=== PATIENT | female | born 1955 | race Caucasian/White ===

== ENCOUNTER 2018-01-18 23:21 | Inpatient (IN) | END 2018-01-25 19:24 | disposition home or self-care (01) | DRG 25 ==

== ENCOUNTER 2018-03-27 13:02 | Emergency (ER) | END 2018-03-27 16:10 | disposition home or self-care (01) ==

== ENCOUNTER 2019-01-23 14:26 | Inpatient (IN) | payer OTHER ==
[~2019-01-23] VITALS: Ht 154.9 cm; Wt 73.7 kg
[~2019-01-23 14:26] MED LIST: CIPR500T4 PO; GLIM2TAB PO; HYDR-4011 PO; LEVE250T66 PO; METF-849 PO; METR500T PO; TRAM50TA2 PO
[2019-01-23] MEDS ORDERED: morphine 4 MG/ML VIAL IV STA (14:39)
[2019-01-23] MEDS ORDERED: SOD CHLORIDE 0.9% 1,000 ML IV STA (14:39)
[2019-01-23] MEDS ORDERED: ONDANSETRON 4 MG INJ IV STA (14:39)
[2019-01-23] MEDS ORDERED: ATOR20TA38 PO (16:26)
[2019-01-23] MEDS ORDERED: AMLO5TAB4 PO (16:26)
[2019-01-23] MEDS ORDERED: DEXA4TAB PO (16:26)
[2019-01-23] MEDS ORDERED: LEVE750T8 PO (16:27)
[2019-01-23] MEDS ORDERED: METF850T13 PO (16:27)
[2019-01-23] MEDS ORDERED: PANT40TA4 PO (16:28)
[2019-01-23] MEDS ORDERED: TRAM50TA PO (16:28)
[2019-01-23] MEDS ORDERED: DOCU-230 PO (16:29)
[2019-01-23] MEDS ORDERED: ONDANSETRON 4 MG INJ IV PRN (17:30)
[2019-01-23] MEDS ORDERED: ACETAMINOPHEN 325 MG TAB PO PRN (17:30)
--- NOTE | 2019-01-23 17:52 | HP ---
Date/Time of Note Date/Time of Note DATE: 01/23/19 TIME: 17:46 Assessment/Plan VTE Prophylaxis Pharmacological prophylaxis: NA/contraindicated Pharm contraindication: other Lines/Catheters IV Catheter Type (from Nrsg): Saline Lock Assessment/Plan Hospital Course 1. Abdominal pain Differential is secondary to constipation versus gastritis versus cystitis Follow-up on KUB and UA No indication for antibiotics at this as there is no evidence of sepsis PPI IV Enema as needed Patient unable to take oral medications at this time 2. Terminal stage IV brain cancer Inpatient hospice consult Of note patient was recently placed on home hospice 3 days ago, that agency does not have privileges for inpatient hospice 3. History of diabetes No indication for insulin due to hospice status Prophylaxis: Not indicated Result Diagram: 01/23/19 1501 01/23/19 1501 Results 24hrs Laboratory Tests Test 01/23/19 15:01 White Blood Count 3.6 #L Red Blood Count 4.68 Hemoglobin 13.8 # Hematocrit 40.0 Mean Corpuscular Volume 85.5 Mean Corpuscular Hemoglobin 29.5 Mean Corpuscular Hemoglobin Concent 34.5 Red Cell Distribution Width 14.0 Platelet Count 163 # Mean Platelet Volume 9.8 Immature Granulocytes % 0.300 Neutrophils % Segmented Neutrophils % (Manual) 69 Band Neutrophils % (Manual) 21 H Lymphocytes % Lymphocytes % (Manual) 6 L Monocytes % Monocytes % (Manual) 4 Eosinophils % Basophils % Nucleated Red Blood Cells % 0.0 Immature Granulocytes # 0.010 Neutrophils # Neutrophils # (Manual) 2.5 Band Neutrophils # 0.7 H Lymphocytes (Manual) 0.2 L Lymphocytes # Monocytes # Monocytes # (Manual) 0.1 L Eosinophils # Basophils # Nucleated Red Blood Cells # Platelet Estimate NORMAL Giant Platelets 2 H Sodium Level 135 Potassium Level 4.0 Chloride Level 102 Carbon Dioxide Level 23 Anion Gap 10 Blood Urea Nitrogen 26 H Creatinine 0.31 L Est Glomerular Filtrat Rate mL/min > 60 Glucose Level 354 H Calcium Level 8.3 L Total Bilirubin 1.1 Direct Bilirubin 0.00 Indirect Bilirubin 1.1 Aspartate Amino Transf (AST/SGOT) 11 L Alanine Aminotransferase (ALT/SGPT) 24 Alkaline Phosphatase 74 Troponin I < 0.012 Total Protein 5.4 L Albumin 2.8 L Globulin 2.60 Albumin/Globulin Ratio 1.07 Lipase 43 HPI/ROS Admit Date/Time Admit Date/Time January 23, 2019 Hx of Present Illness Patient is a 63-year-old female with a history of brain cancer status post surgical resection x2, dyslipidemia, hypertension. Patient is nonverbal and nonambulatory at baseline and was recently placed on home hospice 3 days ago. P lyn was brought in by family due to abdominal pain that began 4 days ago. Exact description of pain is unclear as patient only responds with yes and no, patient has not had a bowel movement for several days now and does have a decreased appetite. Patient has no reported history of gastritis and no history of malignancy within the abdomen. History is obtained from patient's family who is bedside. In the ER there is no evidence of sepsis and chest x-ray shows no significant findings. ROS Subjective hx not possible: pt non-verbal PMH/Family/Social Past Medical History As per HPI Medications Current Medications Ondansetron HCl (Zofran Inj) 4 mg BRIDGE ORDER PRN IV NAUSEA/VOMITING; Start 01/23/19 at 17:30; Stop 01/24/19 at 17:29 Acetaminophen (Tylenol Tab) 650 mg ER BRIDGE PRN PO .MILD PAIN 1-3 OR TEMP; Start 01/23/19 at 17:30; Stop 01/24/19 at 17:29 Uncoded Allergies: SEIZURE MEDS (Allergy, Unknown, 01/23/19) CAN'T REMEMBER THE NAME Past Surgical History History of hysterectomy and oophorectomy Family History Significant Family History: cancer, other Social History Alcohol Use: none Smoking Status: Never smoker Drug Use: none Exam/Review of Systems Vital Signs Vitals Vital Signs Date Temp Pulse Resp B/P (MAP) Pulse Ox O2 O2 Flow FiO2 Time Delivery Rate 01/23/19 95 16 143/98 96 Room Air 16:30 (113) 01/23/19 98.1 16:03 01/23/19 4.0 15:00 Exam Constitutional: non-verbal Respiratory: clear to auscultation Cardiovascular: regular rate and rhythm Gastrointestinal: soft, non-tender; No distended Musculoskeletal: nl extremities to inspection ELIZABETH GOODWIN Jan 23, 2019 17:52
[2019-01-23] MEDS ORDERED: NACL 0.9% 3 ML SYG IV SCH (18:00)
[2019-01-23] MEDS ORDERED: PIPER-TAZO 3.375 GM IV (PMX) 100 ML IVPB ONE (18:30)
--- NOTE | 2019-01-23 18:37 | ERD ---
ER Documentation Chief Complaint Chief Complaint aloc x 3 to 4 days. hx of brain ca. pt is on hospice HPI Patient is a 63-year-old female with stage IV brain cancer and seizures who presents with abdominal pain. Please note the history and physical exam is limited as the patient is nonverbal because of her brain cancer. The patient was brought in by ambulance. She is pointing to her epigastric and chest area per the family. She has had pain off and on since Tuesday. She is on home hospice for the past week. The family had the nurse from the hospice come out who thought it might be gastritis and try to pain medicine which made a little bit better but the pain has gotten worse. ROS All systems reviewed and are negative except as per history of present illness. Medications Home Meds Reported Medications Docusate Sodium* (Stool Softener*) 100 Mg Capsule, 100 MG PO DAILY, CAP 01/23/19 Tramadol Hcl* (Ultram*) 50 Mg Tablet, 50 MG PO Q6H PRN for PAIN, TAB 01/23/19 Pantoprazole* (Pantoprazole*) 40 Mg Tablet.dr, 40 MG PO AC BREAKFAST, TAB 01/23/19 Metformin Hcl* (Metformin Hcl*) 850 Mg Tablet, 850 MG PO WITH BREAKFAST DINNE, #60 TAB 01/23/19 Levetiracetam* (Levetiracetam*) 750 Mg Tablet, 750 MG PO BID, TAB 01/23/19 Dexamethasone* (Dexamethasone*) 4 Mg Tablet, 4 MG PO BID, TAB 01/23/19 Atorvastatin Calcium* (Atorvastatin Calcium*) 20 Mg Tablet, 20 MG PO QHS, #30 TAB 01/23/19 Amlodipine Besylate* (Norvasc*) 5 Mg Tablet, 5 MG PO DAILY, TAB 01/23/19 Discontinued Reported Medications Metformin* (Glucophage*) 500 Mg Tab, 500 MG PO BID WITH MEALS, #90 TAB 03/27/18 Hydrocodone/Acetaminophen ([place] 5-325 Tablet) 1 Each Tablet, 1 EACH PO DAILY PRN for SEVERE PAIN LEVEL 7-10, TAB 03/27/18 Glimepiride* (Glimepiride*) 2 Mg Tablet, 2 MG PO WITH BREAKFAST, TAB 03/27/18 Levetiracetam* (Keppra*) 250 Mg Tab, 250 MG PO BID, TAB 03/27/18 Discontinued Scripts Tramadol HCl (Tramadol HCl) 50 Mg Tablet, 50 MG PO Q6 PRN for PAIN, #10 TAB Prov:FLORENTIN SANTANA MD 03/27/18 Metronidazole* (Flagyl*) 500 Mg Tablet, 500 MG PO TID for 10 Days, TAB Prov:FLORENTIN SANTANA MD 03/27/18 Ciprofloxacin Hcl* (Ciprofloxacin Hcl*) 500 Mg Tablet, 500 MG PO BID for 10 Days, TAB Prov:FLORENTIN SANTANA MD 03/27/18 Allergies Allergies: Uncoded Allergies: SEIZURE MEDS (Allergy, Unknown, 01/23/19) CAN'T REMEMBER THE NAME PMhx/Soc History of Surgery: Yes (appendectomy, hysterectomy, brain tumor removed 2 months ago) Anesthesia Reaction: No Hx Neurological Disorder: No Hx Respiratory Disorders: No Hx Cardiac Disorders: No Hx Psychiatric Problems: No Hx Miscellaneous Medical Probl: Yes (brain cancer) Hx Alcohol Use: No Hx Substance Use: No Hx Tobacco Use: No Smoking Status: Never smoker FmHx Family History: diabetes Physical Exam Vitals Vital Signs Date Temp Pulse Resp B/P (MAP) Pulse Ox O2 O2 Flow FiO2 Time Delivery Rate 01/23/19 95 16 143/98 96 Room Air 16:30 (113) 01/23/19 98.1 98 20 138/97 98 16:03 (111) 01/23/19 105 18 144/98 96 Nasal 4.0 15:00 (113) Cannula Physical Exam Const: Moderate distress secondary to pain Head: Atraumatic Eyes: Normal Conjunctiva ENT: Normal External Ears, Nose and Mouth. Neck: Full range of motion. No meningismus. Resp: Clear to auscultation bilaterally Cardio: Regular rate and rhythm, no murmurs Abd: Diffuse tenderness to palpation without rebound or guarding Skin: No petechiae or rashes Back: No midline or flank tenderness Ext: No cyanosis, or edema Neur: Awake but nonverbal at baseline Result Diagram: 01/23/19 1501 01/23/19 1501 Results 24 hrs Laboratory Tests Test 01/23/19 15:01 White Blood Count 3.6 10^3/ul Red Blood Count 4.68 10^6/ul Hemoglobin 13.8 g/dl Hematocrit 40.0 % Mean Corpuscular Volume 85.5 fl Mean Corpuscular Hemoglobin 29.5 pg Mean Corpuscular Hemoglobin Concent 34.5 g/dl Red Cell Distribution Width 14.0 % Platelet Count 163 10^3/UL Mean Platelet Volume 9.8 fl Immature Granulocytes % 0.300 % Neutrophils % % Segmented Neutrophils % (Manual) 69 % Band Neutrophils % (Manual) 21 % Lymphocytes % % Lymphocytes % (Manual) 6 % Monocytes % % Monocytes % (Manual) 4 % Eosinophils % % Basophils % % Nucleated Red Blood Cells % 0.0 /100WBC Immature Granulocytes # 0.010 10^3/ul Neutrophils # 10^3/ul Neutrophils # (Manual) 2.5 10^3/ul Band Neutrophils # 0.7 10^3/ul Lymphocytes (Manual) 0.2 10^3/ul Lymphocytes # 10^3/ul Monocytes # 10^3/ul Monocytes # (Manual) 0.1 10^3/ul Eosinophils # 10^3/ul Basophils # 10^3/ul Nucleated Red Blood Cells # 10^3/ul Platelet Estimate NORMAL Giant Platelets 2 % Sodium Level 135 mmol/L Potassium Level 4.0 mmol/L Chloride Level 102 mmol/L Carbon Dioxide Level 23 mmol/L Anion Gap 10 Blood Urea Nitrogen 26 mg/dl Creatinine 0.31 mg/dl Est Glomerular Filtrat Rate mL/min > 60 mL/min Glucose Level 354 mg/dl Calcium Level 8.3 mg/dl Total Bilirubin 1.1 mg/dl Direct Bilirubin 0.00 mg/dl Indirect Bilirubin 1.1 mg/dl Aspartate Amino Transf (AST/SGOT) 11 IU/L Alanine Aminotransferase (ALT/SGPT) 24 IU/L Alkaline Phosphatase 74 IU/L Troponin I < 0.012 ng/ml Total Protein 5.4 g/dl Albumin 2.8 g/dl Globulin 2.60 g/dl Albumin/Globulin Ratio 1.07 Lipase 43 U/L Current Medications Medications Dose Sig/Millie Start Time Status Last (Trade) Ordered Route PRN Stop Time Admin Dose Reason Admin Sodium 1,000 ml @ Q1H STAT 01/23/19 DC 01/23/19 Chloride 1,000 mls/hr IV 14:39 15:12 01/23/19 15:38 Morphine 4 mg ONCE STAT 01/23/19 DC 01/23/19 Sulfate IV 14:39 15:12 (morphine) 01/23/19 14:40 Ondansetron 4 mg ONCE STAT 01/23/19 DC 01/23/19 HCl (Zofran IV 14:39 15:12 Inj) 01/23/19 14:40 Ondansetron 4 mg BRIDGE ORDER 01/23/19 HCl (Zofran PRN IV 17:30 Inj) NAUSEA/VOMITI 01/24/19 17:29 NG 650 mg ER BRIDGE 01/23/19 Acetaminophen PRN PO 17:30 (Tylenol .MILD PAIN 01/24/19 17:29 Tab) 1-3 OR TEMP IV Flush 3 ml PER 01/23/19 (NS 3 ml) PROTOCOL IV 18:00 Morphine 2 mg Q4H PRN 01/23/19 Sulfate IV .SEVERE 18:00 (morphine) PAIN 7-10 40 mg DAILY@06 01/24/19 UNV Pantoprazole IV 06:00 (Protonix Iv) 100 ml @ Q12 IVPB 01/23/19 UNV Levetiracetam 400 mls/hr 21:00 Piperacillin 100 ml @ ONCE ONCE 01/23/19 Sod/ 200 mls/hr IVPB 18:30 Tazobactam 01/23/19 18:59 Sod Procedures/MDM CT abdomen pelvis shows perforated diverticulitis per radiology. Patient is a 63-year-old female who presents with acute abdominal pain. The patient was found to have acute perforated diverticulitis. At this point I doubt sepsis. The patient had blood cultures drawn and was given Zosyn emp irically. I had a long discussion with the family regarding goals of care. They would like to continue with inpatient hospice. We discussed surgery and we do not feel the patient is a good candidate for surgery at this time given her stage IV brain cancer. The patient will be admitted to the care of Dr. Hernandez to inpatient hospice. Critical Care: Time: 35 minutes excluding all billable procedures. Treatments/Evaluations: Close monitoring and treatment of unstable vital signs, cardiorespiratory, and neurologic status, while maintaining tight balance of fluid, respiratory, and cardiac interventions. Departure Diagnosis: Primary Impression: Hospice care Additional Impressions: Perforation of cecum due to diverticulitis Abdominal pain Abdominal location: generalized Qualified Codes: R10.84 - Generalized abdominal pain Condition: Serious SHAWN TELLO MD Jan 23, 2019 18:37
[2019-01-23] MEDS: LEVETIRACETAM 500 MG (PMX) 100 ML IVPB SCH (22:56)
[2019-01-24 00:01] VITALS: BP 163/92; PULSE 92; RESP 18
[2019-01-24 00:26] VITALS: Ht 154.9 cm; Wt 73.7 kg
[2019-01-24] MEDS: PIPER-TAZO 3.375 GM IV (PMX) 100 ML IVPB SCH ×5 (00:33→23:28)
[2019-01-24 04:58] VITALS: BP 150/87; PULSE 88; RESP 16
[2019-01-24] MEDS: PANTOPRAZOLE 40 MG INJ IV SCH (05:26)
[2019-01-24] MEDS ORDERED: hydrALAzine 20 MG INJ IV ONE (07:00)
[2019-01-24] MEDS: morphine 2 MG INJ IV PRN ×2 (07:11→21:44)
[2019-01-24 08:11] VITALS: BP 168/87; PULSE 84; RESP 18
[2019-01-24] MEDS: LEVETIRACETAM 500 MG (PMX) 100 ML IVPB SCH ×2 (09:31→21:12)
[2019-01-24] MEDS: DEXAMETHASONE 4 MG TAB PO SCH ×2 (13:22→21:12)
[2019-01-24 14:51] VITALS: BP 139/81; PULSE 92; RESP 18
--- NOTE | 2019-01-24 15:52 | PN ---
Date/Time of Note Date/Time of Note DATE: 01/24/19 TIME: 15:44 Assessment/Plan VTE Prophylaxis Risk score (from [facility] [place])>0 risk: 11 SCD applied (from [facility] [place]): Yes Pharmacological prophylaxis: NA/contraindicated Pharm contraindication: surgical contra Lines/Catheters IV [facility] Saline Lock Urinary Cath still in place: No Assessment/Plan Hospital Course 1. Abdominal pain secondary to diverticulitis with perforation CT abdomen does demonstrate diverticulitis with perforation, no evidence of free air on KUB Surgical consultation with Dr. Fuentes obtained, not clear if patient is a surgical candidate considering comorbidites Zosyn IV PPI IV Enema as needed Patient unable to take oral medications at this time 2. Stage IV brain cancer Family reports that patient receives care at [facility] and has been told that there is no clear evidence of further brain mass Patient is status post 2 surgical resections as well as chemotherapy and radiation, patient last received chemotherapy several weeks ago and began to become somnolent 3. Encephalopathy likely secondary to history of surgical resection as well as radiation therapy to the brain Patient became more somnolent several weeks ago and is currently nonverbal and nonambulatory, etiology is likely secondary to previous surgeries and radiation, previous brain imaging showed some enhancement in the brain but no evidence of malignancy Continue home Decadron which appears to have been given for enhancement noted on brain imaging but not for a clear brain mass 4. History of diabetes Lantus and sliding scale Prophylaxis: SCDs Result Diagram: 01/23/19 1501 01/23/19 1501 Results 24hrs Laboratory Tests Test 01/23/19 19:48 01/23/19 22:54 Lactic Acid Level 1.0 0.9 Subjective 24 Hr Interval Summary Subjective hx not possible: pt non-verbal Exam/Review of Systems Exam Vitals Vital Signs Date Temp Pulse Resp B/P (MAP) Pulse Ox O2 O2 Flow FiO2 Time Delivery Rate 01/24/19 97.8 92 18 139/81 95 Nasal 14:51 (100) Cannula 01/24/19 3.0 08:35 Intake and Output 01/23/19 01/23/19 01/24/19 1515:00 23:00 07:00 IntakeIntake Total 200 ml BalanceBalance 200 ml Constitutional: non-verbal Respiratory: clear to auscultation Cardiovascular: regular rate and rhythm Gastrointestinal: soft; No distended Musculoskeletal: nl extremities to inspection Results Results 24hrs Laboratory Tests Test 01/23/19 19:48 01/23/19 22:54 Lactic Acid Level 1.0 0.9 Medications Medication Current Medications IV Flush (NS 3 ml) 3 ml PER PROTOCOL IV ; Start 01/23/19 at 18:00 Morphine Sulfate (morphine) 2 mg Q4H PRN IV .SEVERE PAIN 7-10 Last administered on 01/24/19 07:11; Admin Dose 2 MG; Start 01/23/19 at 18:00 Pantoprazole (Protonix Iv) 40 mg DAILY@06 IV Last administered on 01/24/19 05:26; Admin Dose 40 MG; Start 01/24/19 at 06:00 Levetiracetam 100 ml @ 400 mls/hr Q12 IVPB Last administered on 01/24/19 09:31; Admin Dose 400 MLS/HR; Start 01/23/19 at 23:00 Piperacillin Sod/ Tazobactam Sod 100 ml @ 200 mls/hr Q6 IVPB Last administered on 01/24/19 13:21; Admin Dose 200 MLS/HR; Start 01/24/19 at 00:00 Dexamethasone (Decadron) 4 mg BID PO Last administered on 01/24/19 13:22; Admin Dose 4 MG; Start 01/24/19 at 12:30 ELIZABETH GOODWIN Jan 24, 2019 15:51
[2019-01-24] MEDS ORDERED: GLUCOSE GEL 15 GRAM TUBE BUCCAL PRN (16:30)
[2019-01-24] MEDS ORDERED: DEXTROSE 50% 50 ML SYRINGE IV PRN ×2 (16:30)
[2019-01-24] MEDS ORDERED: GLUCOSE GEL 15 GRAM TUBE PO PRN ×2 (16:30)
[2019-01-24] MEDS ORDERED: GLUCAGON 1 MG INJ IM PRN (16:30)
[2019-01-24] MEDS: INSULIN ASPART [NOVOLOG] 3 ML PEN SC SCH ×2 (18:21→21:11)
[2019-01-24 19:30] VITALS: BP 135/67; PULSE 79; RESP 18
[2019-01-24] MEDS ORDERED: INSULIN GLARGINE [LANTus] (100 UNITS/ML) SYG SC SCH (20:00)
[2019-01-24] MEDS: NS + KCL 20 MEQ 1,000 ML IV SCH (21:12)
[2019-01-25 00:10] VITALS: BP 153/81; PULSE 71; RESP 18
[2019-01-25] MEDS: ACCU-CHEK XX SCH (01:21)
[2019-01-25] MEDS: INSULIN ASPART [NOVOLOG] 3 ML PEN SC SCH ×6 (01:21→20:42)
[2019-01-25] MEDS: PIPER-TAZO 3.375 GM IV (PMX) 100 ML IVPB SCH ×3 (05:23→17:45)
[2019-01-25] MEDS: PANTOPRAZOLE 40 MG INJ IV SCH (05:24)
[2019-01-25 08:15] VITALS: BP 153/80; PULSE 58
[2019-01-25] MEDS: LEVETIRACETAM 500 MG (PMX) 100 ML IVPB SCH ×2 (09:05→20:39)
[2019-01-25] MEDS: DEXAMETHASONE 4 MG TAB PO SCH ×2 (09:06→21:00)
[2019-01-25] MEDS: NS + KCL 20 MEQ 1,000 ML IV SCH (13:27)
--- NOTE | 2019-01-25 15:41 | CONS ---
Assessment/Plan Assessment/Plan Hospital Course (Demo Recall) 1. perforated diverticulitis w small pneumoperitoneum: family would like to pursue conservative management -npo -ivf -abx -careful monitoring -repeat imaging in a few days 2. stage 4 cancer, sp tumor resection and radiation -Oncology/neuro follow-up -Supportive 3.Leukopenia: -Monitor 4. Normocytic normochromic anemia: -Monitor and transfuse as needed 5. Thrombocytopenia: -Monitor; consider changing antibiotics if persistent 6. Obesity BMI: 31 -diet and exercise optimization -encourage weight loss 7. Dyslipidemia, hypertension history -Highly encouraged weight loss -Medical management 8. Hyperglycemia with glucosuria: Currently on steroids -Glucose management Thank you. Patient seen and examined in collaboration with Dr. Abimael Fuentes. Consultation Date/Type/Reason Admit Date/Time January 23, 2019 Date of Consultation: Jan 24, 2019 Type of Consult Surgical Reason for Consultation Abdominal pain, pneumoperitoneum Requesting Provider: ELIZABETH GOODWIN Date/Time of Note DATE: 01/24/19 TIME: 18:43 Hx of Present Illness Josette Hong is a 63-year-old woman with past medical history of brain cancer status post surgical resection x2, recent radiation therapy, dyslipidemia, hypertension and obesity, who presented to the ED with reports of abdominal pain that began approximately 4 days prior to ED visit. Notably, patient was placed on hospice service at home, however patient family has now reverted DNR status. No reports of fevers, labored breathing, congested cough, vomiting, diarrhea, seizure, rashes skin changes. Family does report that patient has not had a bowel movement for several days but is passing gas. CT of the abdomen shows diverticulosis with stranding of mesenteric fat through the right lateral abdomen with small volume pneumoperitoneum compatible with perforated diverticulitis. Laboratory findings show leukopenia with WBC of 3.6 as well as thrombocytopenia of 128. General surgery was asked to evaluate. 12 point review of systems was reviewed and is negative except as stated in HPI Past Medical History As above Home Meds Reported Medications Docusate Sodium* (Stool Softener*) 100 Mg Capsule, 100 MG PO DAILY, CAP 01/23/19 Tramadol Hcl* (Ultram*) 50 Mg Tablet, 50 MG PO Q6H PRN for PAIN, TAB 01/23/19 Pantoprazole* (Pantoprazole*) 40 Mg Tablet., 40 MG PO AC BREAKFAST, TAB 01/23/19 Metformin Hcl* (Metformin Hcl*) 850 Mg Tablet, 850 MG PO WITH BREAKFAST DINNE, #60 TAB 01/23/19 Levetiracetam* (Levetiracetam*) 750 Mg Tablet, 750 MG PO BID, TAB 01/23/19 Dexamethasone* (Dexamethasone*) 4 Mg Tablet, 4 MG PO BID, TAB 01/23/19 Atorvastatin Calcium* (Atorvastatin Calcium*) 20 Mg Tablet, 20 MG PO QHS, #30 TAB 01/23/19 Amlodipine Besylate* (Norvasc*) 5 Mg Tablet, 5 MG PO DAILY, TAB 01/23/19 Discontinued Reported Medications Metformin* (Glucophage*) 500 Mg Tab, 500 MG PO BID WITH MEALS, #90 TAB 03/27/18 Hydrocodone/Acetaminophen ([place] 5-325 Tablet) 1 Each Tablet, 1 EACH PO DAILY PRN for SEVERE PAIN LEVEL 7-10, TAB 03/27/18 Glimepiride* (Glimepiride*) 2 Mg Tablet, 2 MG PO WITH BREAKFAST, TAB 03/27/18 Levetiracetam* (Keppra*) 250 Mg Tab, 250 MG PO BID, TAB 03/27/18 Discontinued Scripts Tramadol HCl (Tramadol HCl) 50 Mg Tablet, 50 MG PO Q6 PRN for PAIN, #10 TAB Prov:FLORENTIN SANTANA MD 03/27/18 Metronidazole* (Flagyl*) 500 Mg Tablet, 500 MG PO TID for 10 Days, TAB Prov:FLORENTIN SANTANA MD 03/27/18 Ciprofloxacin Hcl* (Ciprofloxacin Hcl*) 500 Mg Tablet, 500 MG PO BID for 10 Days, TAB Prov:FLORENTIN SANTANA MD 03/27/18 Medications Current Medications IV Flush (NS 3 ml) 3 ml PER PROTOCOL IV ; Start 01/23/19 at 18:00 Morphine Sulfate (morphine) 2 mg Q4H PRN IV .SEVERE PAIN 7-10 Last administered on 01/24/19at 07:11; Admin Dose 2 MG; Start 01/23/19 at 18:00 Pantoprazole (Protonix Iv) 40 mg DAILY@06 IV Last administered on 01/24/19at 05:26; Admin Dose 40 MG; Start 01/24/19 at 06:00 Levetiracetam 100 ml @ 400 mls/hr Q12 IVPB Last administered on 01/24/19at 09:31; Admin Dose 400 MLS/HR; Start 01/23/19 at 23:00 Piperacillin Sod/ Tazobactam Sod 100 ml @ 200 mls/hr Q6 IVPB Last administered on 01/24/19at 13:21; Admin Dose 200 MLS/HR; Start 01/24/19 at 00:00 Dexamethasone (Decadron) 4 mg BID PO Last administered on 01/24/19at 13:22; Admin Dose 4 MG; Start 01/24/19 at 12:30 Diagnostic Test (Pha) (Accu-Chek) 1 ea 02 XX ; Start 01/25/19 at 02:00 Insulin Glargine (Lantus) 10 units DAILY@2000 SC ; Start 01/24/19 at 20:00 Insulin Aspart (Novolog Insulin Pen) NOVOLOG *MILD* ALGORI... Q4 SC Last administered on 01/24/19at 18:21; Admin Dose 4 UNIT; Start 01/24/19 at 17:00 Miscellaneous Information 1 ea NOTE XX ; Start 01/24/19 at 16:30 Glucose (Glutose) 15 gm Q15M PRN PO DECREASED GLUCOSE; Start 01/24/19 at 16:30 Glucose (Glutose) 22.5 gm Q15M PRN PO DECREASED GLUCOSE; Start 01/24/19 at 1 6:30 Dextrose (D50w Syringe) 25 ml Q15M PRN IV DECREASED GLUCOSE; Start 01/24/19 at 16:30 Dextrose (D50w Syringe) 50 ml Q15M PRN IV DECREASED GLUCOSE; Start 01/24/19 at 16:30 Glucagon (Glucagen) 1 mg Q15M PRN IM DECREASED GLUCOSE; Start 01/24/19 at 16:30 Glucose (Glutose) 15 gm Q15M PRN BUCCAL DECREASED GLUCOSE; Start 01/24/19 at 16:30 Allergies: Uncoded Allergies: SEIZURE MEDS (Allergy, Unknown, 01/23/19) CAN'T REMEMBER THE NAME Past Surgical History As above Social History Alcohol Use: none Smoking Status: Never smoker Drug Use: none Exam/Review of Systems Exam Vitals Vital Signs Date Temp Pulse Resp B/P (MAP) Pulse Ox O2 O2 Flow FiO2 Time Delivery Rate 01/24/19 97.8 92 18 139/81 95 Nasal 14:51 (100) Cannula 01/24/19 3.0 08:35 Intake and Output 01/23/19 01/23/19 01/24/19 1515:00 23:00 07:00 IntakeIntake Total 200 ml BalanceBalance 200 ml Constitutional: alert, well developed; No distress Psych: nl mood/affect; No anxiety Head: normocephalic, atraumatic, other (Left scalp incision sites healed) Eyes: nl conjunctiva, nl lids ENMT: nl external ears & nose, nl lips & teeth, nl nasal mucosa & septum Neck: supple, non-tender Respiratory: normal air movement; No congested cough Cardiovascular: regular rate and rhythm, nl pulses; No edema Gastrointestinal: soft, distended (Minimal); No tender Genitourinary - Female: nl external genitalia Musculoskeletal: nl extremities to inspection Extremities: normal pulses; No edema Neurological: No nl speech (Repetitive words), No nl strength Skin: No rash or lesions Results Result Diagram: 01/23/19 1501 01/23/19 1501 Results 24hrs Laboratory Tests Test 01/23/19 19:48 01/23/19 22:54 01/24/19 18:15 Lactic Acid Level 1.0 0.9 Bedside Glucose 288 H Medications Medication Current Medications IV Flush (NS 3 ml) 3 ml PER PROTOCOL IV ; Start 01/23/19 at 18:00 Morphine Sulfate (morphine) 2 mg Q4H PRN IV .SEVERE PAIN 7-10 Last administered on 01/24/19at 07:11; Admin Dose 2 MG; Start 01/23/19 at 18:00 Pantoprazole (Protonix Iv) 40 mg DAILY@06 IV Last administered on 01/24/19at 05:26; Admin Dose 40 MG; Start 01/24/19 at 06:00 Levetiracetam 100 ml @ 400 mls/hr Q12 IVPB Last administered on 01/24/19at 09:31; Admin Dose 400 MLS/HR; Start 01/23/19 at 23:00 Piperacillin Sod/ Tazobactam Sod 100 ml @ 200 mls/hr Q6 IVPB Last administered on 01/24/19at 13:21; Admin Dose 200 MLS/HR; Start 01/24/19 at 00:00 Dexamethasone (Decadron) 4 mg BID PO Last administered on 01/24/19at 13:22; Admin Dose 4 MG; Start 01/24/19 at 12:30 Diagnostic Test (Pha) (Accu-Chek) 1 ea 02 XX ; Start 01/25/19 at 02:00 Insulin Glargine (Lantus) 10 units DAILY@2000 SC ; Start 01/24/19 at 20:00 Insulin Aspart (Novolog Insulin Pen) NOVOLOG *MILD* ALGORI... Q4 SC Last admini stered on 01/24/19at 18:21; Admin Dose 4 UNIT; Start 01/24/19 at 17:00 Miscellaneous Information 1 ea NOTE XX ; Start 01/24/19 at 16:30 Glucose (Glutose) 15 gm Q15M PRN PO DECREASED GLUCOSE; Start 01/24/19 at 16:30 Glucose (Glutose) 22.5 gm Q15M PRN PO DECREASED GLUCOSE; Start 01/24/19 at 16:30 Dextrose (D50w Syringe) 25 ml Q15M PRN IV DECREASED GLUCOSE; Start 01/24/19 at 16:30 Dextrose (D50w Syringe) 50 ml Q15M PRN IV DECREASED GLUCOSE; Start 01/24/19 at 16:30 Glucagon (Glucagen) 1 mg Q15M PRN IM DECREASED GLUCOSE; Start 01/24/19 at 16:30 Glucose (Glutose) 15 gm Q15M PRN BUCCAL DECREASED GLUCOSE; Start 01/24/19 at 16:30 MARY JANE DALY NP Jan 24, 2019 18:55
--- NOTE | 2019-01-25 15:45 | PN ---
Date/Time of Note Date/Time of Note DATE: 01/25/19 TIME: 15:44 Assessment/Plan Lines/Catheters IV Catheter Type (from [facility]): Peripheral IV Figueroa in Place (from [facility]): No Assessment/Plan Chief Complaint/Hosp Course 1. perforated diverticulitis w small pneumoperitoneum: family would like to pursue conservative management -npo -ivf -abx -Continue careful monitoring -repeat imaging in a few days 2. stage 4 cancer, sp tumor resection and radiation -Oncology/neuro follow-up -Supportive 3.Leukopenia: -Monitor 4. Normocytic normochromic anemia: -Monitor and transfuse as needed 5. Thrombocytopenia: -Monitor; consider changing antibiotics if persistent 6. Obesity BMI: 31 -diet and exercise optimization -encourage weight loss 7. Dyslipidemia, hypertension history -Highly encouraged weight loss -Medical management 8. Hyperglycemia with glucosuria: Currently on steroids -Glucose management Thank you. Patient seen and examined in collaboration with Dr. Abimael Fuentes. Subjective 24 Hr Interval Summary No acute abdominal pain. No fevers, chills, sob, congested cough, cp, palpitations, chavarria, dizziness, nausea, vomiting, diarrhea, dysuria. No abdominal distention Exam/Review of Systems Vital Signs Vitals Vital Signs Date Temp Pulse Resp B/P (MAP) Pulse Ox O2 O2 Flow FiO2 Time Delivery Rate 01/25/19 97.7 58 153/80 98 Nasal 08:15 (104) Cannula 01/25/19 18 00:10 01/24/19 3.0 20:00 Intake and Output 01/24/19 01/24/19 01/25/19 1515:00 23:00 07:00 IntakeIntake Total 300 ml 300 ml 840 ml BalanceBalance 300 ml 300 ml 840 ml Exam Free Text/Dictation Constitutional: alert, well developed; No distress Psych: nl mood/affect; No anxiety Head: normocephalic, atraumatic, other (Left scalp incision sites healed) Eyes: nl conjunctiva, nl lids ENMT: nl external ears & nose, nl lips & teeth, nl nasal mucosa & septum Neck: supple, non-tender Respiratory: normal air movement; No congested cough Cardiovascular: regular rate and rhythm, nl pulses; No edema Gastrointestinal: soft, distended (Minimal); nonrigid No tender Genitourinary - Female: nl external genitalia Musculoskeletal: nl extremities to inspection Extremities: normal pulses; No edema Neurological: No nl speech (Repetitive words), No nl strength Skin: No rash or lesions Results Result Diagram: 01/25/19 0458 01/25/19 0458 MARY JANE DALY NP Jan 25, 2019 15:45
--- NOTE | 2019-01-25 15:49 | PN ---
Date/Time of Note Date/Time of Note DATE: 01/25/19 TIME: 15:47 Assessment/Plan VTE Prophylaxis Risk score (from [facility] [place])>0 risk: 7 SCD applied (from [facility] [place]): Yes Pharmacological prophylaxis: NA/contraindicated Pharm contraindication: surgical contra Lines/Catheters IV C[facility]ter Type (from [facility]): Peripheral IV Urinary Cath still in place: No Assessment/Plan Hospital Course 1. Abdominal pain secondary to diverticulitis with perforation CT abdomen does demonstrate diverticulitis with perforation, no evidence of free air on KUB Surgical consultation with Dr. Fuentes appreciated, plan for now is to continue IV antibiotics n.p.o. status and repeat CT abdomen in several days Zosyn IV PPI IV Enema as needed 2. Stage IV brain cancer Family reports that patient receives care at [place] and has been told that there is no clear evidence of further brain mass Patient is status post 2 surgical resections as well as chemotherapy and radiation, patient last received chemotherapy several weeks ago and began to become somnolent 3. Encephalopathy likely secondary to history of surgical resection as well as radiation therapy to the brain Patient became more somnolent several weeks ago and is currently nonverbal and nonambulatory, etiology is likely secondary to previous surgeries and radiation, previous brain imaging showed some enhancement in the brain but no evidence of malignancy Continue home Decadron which appears to have been given for enhancement noted on brain imaging but not for a clear brain mass 4. History of diabetes Lantus and sliding scale Prophylaxis: SCDs DC planning: Continue IV antibiotics and follow-up with repeat imaging in the next several days Result Diagram: 01/25/19 0458 01/25/19 0458 Results 24hrs Laboratory Tests Test 01/24/19 18:15 01/24/19 21:06 01/25/19 01:18 01/25/19 04:58 Bedside Glucose 288 H 290 H 304 H White Blood Count 3.7 L Red Blood Count 3.73 #L Hemoglobin 10.8 #L Hematocrit 33.0 L Mean Corpuscular 88.5 Volume Mean Corpuscular 29.0 Hemoglobin Mean Corpuscular 32.7 Hemoglobin Concen t Red Cell 14.1 Distribution Width Platelet Count 128 #L Mean Platelet 10.8 H Volume Immature 0.800 H Granulocytes % Neutrophils % Segmented 74 Neutrophils % (Manual) Band Neutrophils 14 H % (Manual) Lymphocytes % Lymphocytes % 8 L (Manual) Monocytes % Monocytes % 4 (Manual) Eosinophils % Basophils % Nucleated Red 0.0 Blood Cells % Immature 0.030 Granulocytes # Neutrophils # Neutrophils # 2.8 (Manual) Band Neutrophils 0.5 # Lymphocytes 0.2 L (Manual) Lymphocytes # Monocytes # Monocytes # 0.1 L (Manual) Eosinophils # Basophils # Nucleated Red Blood Cells # Platelet Estimate DECREASED Giant Platelets 1 H Polychromasia 3+ Anisocytosis 1+ Microcytosis 1+ Sodium Level 139 Potassium Level 4.3 Chloride Level 104 Carbon Dioxide 29 Level Anion Gap 6 Blood Urea 24 H Nitrogen Creatinine 0.32 L Est Glomerular > 60 Filtrat Rate mL/min Glucose Level 271 H Calcium Level 8.3 L Phosphorus Level 3.3 Magnesium Level 2.6 H Test 01/25/19 05:26 01/25/19 09:00 01/25/19 12:53 01/25/19 13:10 Bedside Glucose 265 H 248 H 213 Urine Color YELLOW Urine Clarity SLIGHTLY CLOUDY A Urine pH 5.0 Urine Specific 1.038 H [place] Urine Ketones 1+ H Urine Nitrite NEGATIVE Urine Bilirubin NEGATIVE Urine NEGATIVE Urobilinogen Urine Leukocyte NEGATIVE Esterase Urine Microscopic 0 RBC Urine Microscopic 3 WBC Urine Hemoglobin NEGATIVE Urine Glucose 3+ H Urine Total 2+ H Protein Subjective 24 Hr Interval Summary Subjective hx not possible: pt non-verbal Exam/Review of Systems Exam Vitals Vital Signs Date Temp Pulse Resp B/P (MAP) Pulse Ox O2 O2 Flow FiO2 Time Delivery Rate 01/25/19 97.7 58 153/80 98 Nasal 08:15 (104) Cannula 01/25/19 18 00:10 01/24/19 3.0 20:00 Intake and Output 01/24/19 01/24/19 01/25/19 1515:00 23:00 07:00 IntakeIntake Total 300 ml 300 ml 840 ml BalanceBalance 300 ml 300 ml 840 ml Constitutional: non-verbal Respiratory: clear to auscultation Cardiovascular: regular rate and rhythm Gastrointestinal: soft; No distended Musculoskeletal: nl extremities to inspection Results Results 24hrs Laboratory Tests Test 01/24/19 18:15 01/24/19 21:06 01/25/19 01:18 01/25/19 04:58 Bedside Glucose 288 H 290 H 304 H White Blood Count 3.7 L Red Blood Count 3.73 #L Hemoglobin 10.8 #L Hematocrit 33.0 L Mean Corpuscular 88.5 Volume Mean Corpuscular 29.0 Hemoglobin Mean Corpuscular 32.7 Hemoglobin Concen t Red Cell 14.1 Distribution Width Platelet Count 128 #L Mean Platelet 10.8 H Volume Immature 0.800 H Granulocytes % Neutrophils % Segmented 74 Neutrophils % (Manual) Band Neutrophils 14 H % (Manual) Lymphocytes % Lymphocytes % 8 L (Manual) Monocytes % Monocytes % 4 (Manual) Eosinophils % Basophils % Nucleated Red 0.0 Blood Cells % Immature 0.030 Granulocytes # Neutrophils # Neutrophils # 2.8 (Manual) Band Neutrophils 0.5 # Lymphocytes 0.2 L (Manual) Lymphocytes # Monocytes # Monocytes # 0.1 L (Manual) Eosinophils # Basophils # Nucleated Red Blood Cells # Platelet Estimate DECREASED Giant Platelets 1 H Polychromasia 3+ Anisocytosis 1+ Microcytosis 1+ Sodium Level 139 Potassium Level 4.3 Chloride Level 104 Carbon Dioxide 29 Level Anion Gap 6 Blood Urea 24 H Nitrogen Creatinine 0.32 L Est Glomerular > 60 Filtrat Rate mL/min Glucose Level 271 H Calcium Level 8.3 L Phosphorus Level 3.3 Magnesium Level 2.6 H Test 01/25/19 05:26 01/25/19 09:00 01/25/19 12:53 01/25/19 13:10 Bedside Glucose 265 H 248 H 213 Urine Color YELLOW Urine Clarity SLIGHTLY CLOUDY A Urine pH 5.0 Urine Specific 1.038 H [place] Urine Ketones 1+ H Urine Nitrite NEGATIVE Urine Bilirubin NEGATIVE Urine NEGATIVE Urobilinogen Urine Leukocyte NEGATIVE Esterase Urine Microscopic 0 RBC Urine Microscopic 3 WBC Urine Hemoglobin NEGATIVE Urine Glucose 3+ H Urine Total 2+ H Protein Medications Medication Current Medications IV Flush (NS 3 ml) 3 ml PER PROTOCOL IV ; Start 01/23/19 at 18:00 Morphine Sulfate (morphine) 2 mg Q4H PRN IV .SEVERE PAIN 7-10 Last administered on 01/24/19at 21:44; Admin Dose 2 MG; Start 01/23/19 at 18:00 Pantoprazole (Protonix Iv) 40 mg DAILY@06 IV Last administered on 01/25/19at 05:24; Admin Dose 40 MG; Start 01/24/19 at 06:00 Levetiracetam 100 ml @ 400 mls/hr Q12 IVPB Last administered on 01/25/19at 09:05; Admin Dose 400 MLS/HR; Start 01/23/19 at 23:00 Piperacillin Sod/ Tazobactam Sod 100 ml @ 200 mls/hr Q6 IVPB Last administered on 01/25/19at 11:20; Admin Dose 200 MLS/HR; Start 01/24/19 at 00:00 Dexamethasone (Decadron) 4 mg BID PO Last administered on 01/25/19at 09:06; Admin Dose 4 MG; Start 01/24/19 at 12:30 Diagnostic Test (Pha) (Accu-Chek) 1 ea 02 XX ; Start 01/25/19 at 02:00 Insulin Glargine (Lantus) 10 units DAILY@2000 SC Last administered on 01/24/19at 21:10; Admin Dose 10 UNITS; Start 01/24/19 at 20:00 Insulin Aspart (Novolog Insulin Pen) NOVOLOG *MILD* ALGORI... Q4 SC Last administered on 01/25/19at 12:58; Admin Dose 2 UNIT; Start 01/24/19 at 17:00 Miscellaneous Information 1 ea NOTE XX ; Start 01/24/19 at 16:30 Glucose (Glutose) 15 gm Q15M PRN PO DECREASED GLUCOSE; Start 01/24/19 at 16:30 Glucose (Glutose) 22.5 gm Q15M PRN PO DECREASED GLUCOSE; Start 01/24/19 at 16:30 Dextrose (D50w Syringe) 25 ml Q15M PRN IV DECREASED GLUCOSE; Start 01/24/19 at 16:30 Dextrose (D50w Syringe) 50 ml Q15M PRN IV DECREASED GLUCOSE; Start 01/24/19 at 16:30 Glucagon (Glucagen) 1 mg Q15M PRN IM DECREASED GLUCOSE; Start 01/24/19 at 16:30 Glucose (Glutose) 15 gm Q15M PRN BUCCAL DECREASED GLUCOSE; Start 01/24/19 at 16:30 Potassium Chloride/Sodium Chloride 1,000 ml @ 80 mls/hr [id number] IV Last administered on 01/25/19at 13:27; Admin Dose 80 MLS/HR; Start 01/24/19 at 20:30 ELIZABETH GOODWIN Jan 25, 2019 15:49
[2019-01-25 15:50] VITALS: BP 140/71; PULSE 59; RESP 18
[2019-01-25 19:45] VITALS: BP 172/92; PULSE 61; RESP 18
[2019-01-25] MEDS ORDERED: DEXAMETHASONE 4 MG/ML 1 ML INJ IV ONE (21:45)
[2019-01-25] MEDS ORDERED: hydrALAzine 20 MG INJ IV ONE (21:45)
[2019-01-25 22:15] VITALS: BP 171/81; PULSE 70
[2019-01-25] MEDS: INSULIN GLARGINE [LANTus] (100 UNITS/ML) SYG SC SCH (22:33)
[2019-01-26] MEDS: PIPER-TAZO 3.375 GM IV (PMX) 100 ML IVPB SCH ×4 (00:27→17:48)
[2019-01-26] MEDS: NS + KCL 20 MEQ 1,000 ML IV SCH ×3 (01:23→15:27)
[2019-01-26] MEDS: INSULIN ASPART [NOVOLOG] 3 ML PEN SC SCH ×6 (01:28→20:55)
[2019-01-26] MEDS: ACCU-CHEK XX SCH (02:00)
[2019-01-26 02:30] VITALS: BP 140/74; PULSE 62; RESP 18
[2019-01-26] MEDS: PANTOPRAZOLE 40 MG INJ IV SCH (05:50)
[2019-01-26 07:32] VITALS: BP 135/72; PULSE 58; RESP 18
[2019-01-26] MEDS: LEVETIRACETAM 500 MG (PMX) 100 ML IVPB SCH ×2 (08:42→21:22)
[2019-01-26] MEDS: DEXAMETHASONE 4 MG TAB PO SCH (09:00)
[2019-01-26] MEDS: DEXAMETHASONE 4 MG/ML 1 ML INJ IV SCH ×3 (11:12→21:22)
--- NOTE | 2019-01-26 14:02 | PN ---
Date/Time of Note Date/Time of Note DATE: 01/26/19 TIME: 13:59 Assessment/Plan Lines/Catheters IV Catheter Type (from [facility]): Peripheral IV Figueroa in Place (from [facility]): No Assessment/Plan Chief Complaint/Hosp Course 1. Perforated diverticulitis w small pneumoperitoneum: family would like to pursue conservative management -Continue npo -Continue Ivf -abx -Continue careful monitoring -repeat imaging in a few days 2. stage 4 cancer, sp tumor resection and radiation -Oncology/neuro follow-up -Supportive 3.Leukopenia: -Monitor 4. Normocytic normochromic anemia: -Monitor and transfuse as needed 5. Thrombocytopenia: -Monitor; consider changing antibiotics if persistent 6. Obesity BMI: 31 -diet and exercise optimization -encourage weight loss 7. Dyslipidemia, hypertension history -Highly encouraged weight loss -Medical management 8. Hyperglycemia with glucosuria: Currently on steroids -Glucose management Thank you. Patient seen and examined in collaboration with Dr. Abimael Fuentes. Subjective 24 Hr Interval Summary No reports of abdominal pain or discomfort. No fevers, chills, sob, congested cough, cp, palpitations, chavarria, dizziness, nausea, vomiting, diarrhea, dysuria. Exam/Review of Systems Vital Signs Vitals Vital Signs Date Temp Pulse Resp B/P (MAP) Pulse Ox O2 O2 Flow FiO2 Time Delivery Rate 01/26/19 98.0 58 18 135/72 97 Room Air 07:32 (93) 01/24/19 3.0 20:00 Intake and Output 01/25/19 01/25/19 01/26/19 1515:00 23:00 07:00 IntakeIntake Total 1000 ml 1300 ml 1080 ml BalanceBalance 1000 ml 1300 ml 1080 ml Exam Free Text/Dictation Constitutional: alert, well developed; No distress Psych: nl mood/affect; No anxiety Head: normocephalic, atraumatic, other (Left scalp incision sites healed) Eyes: nl conjunctiva, nl lids ENMT: nl external ears & nose, nl lips & teeth, nl nasal mucosa & septum Neck: supple, non-tender Respiratory: normal air movement; No congested cough Cardiovascular: regular rate and rhythm, nl pulses; No edema Gastrointestinal: soft, distended (Minimal); nonrigid No tender Genitourinary - Female: nl external genitalia Musculoskeletal: nl extremities to inspection Extremities: normal pulses; No edema Neurological: No nl speech (Repetitive words), No nl strength Skin: No rash or lesions Results Result Diagram: 01/26/19 0445 01/26/19 0445 MARY JANE DALY NP Jan 26, 2019 14:02
--- NOTE | 2019-01-26 16:00 | PN ---
Date/Time of Note Date/Time of Note DATE: 01/26/19 TIME: 15:58 Assessment/Plan VTE Prophylaxis [place] [facility] [place]: 7 SCD applied [place] [facility] [place] Yes Pharmacological prophylaxis: NA/contraindicated Pharm contraindication: surgical contra Lines/Catheters IV Catheter Type (from [facility]): Peripheral IV Urinary Cath still in place: No Assessment/Plan Hospital Course 1. Abdominal pain secondary to diverticulitis with perforation CT abdomen does demonstrate diverticulitis with perforation, no evidence of free air on KUB Surgical consultation with Dr. Fuentes appreciated, plan for now is to continue IV antibiotics n.p.o. status and repeat CT abdomen in several days Zosyn IV PPI IV Enema as needed 2. Stage IV brain cancer Family reports that patient receives care at [facility] and has been told that there is no clear evidence of further brain mass Patient is status post 2 surgical resections as well as chemotherapy and radiation, patient last received chemotherapy several weeks ago and began to become somnolent 3. Encephalopathy likely secondary to history of surgical resection as well as radiation therapy to the brain Patient became more somnolent several weeks ago and is currently nonverbal and nonambulatory, etiology is likely secondary to previous surgeries and radiation, previous brain imaging showed some enhancement in the brain but no evidence of malignancy Continue steroids which appear to have been given for enhancement noted on brain imaging but not for a clear brain mass 4. History of diabetes Lantus and sliding scale Prophylaxis: SCDs DC planning: Continue IV antibiotics and follow-up with repeat imaging in the next several days Result Diagram: 01/26/19 0445 01/26/19 0445 Results 24hrs Laboratory Tests Test 01/25/19 17:41 01/25/19 20:40 01/25/19 22:17 01/26/19 01:23 Bedside Glucose 236 H 230 H 198 227 H Test 01/26/19 04:45 01/26/19 05:51 01/26/19 08:49 01/26/19 12:49 White Blood Count 4.0 L Red Blood Count 3.74 L Hemoglobin 10.9 L Hematocrit 32.6 L Mean Corpuscular 87.2 Volume Mean Corpuscular 29.1 Hemoglobin Mean Corpuscular 33.4 Hemoglobin Concent Red Cell 14.0 Distribution Width Platelet Count 139 L Mean Platelet Volume 11.2 H Immature 0.800 H Granulocytes % Neutrophils % Segmented 66 Neutrophils % (Manual) Band Neutrophils % 20 H (Manual) Lymphocytes % Lymphocytes % 8 L (Manual) Reactive Lymphocytes 1 H % (Manual) Monocytes % Monocytes % (Manual) 5 Eosinophils % Basophils % Nucleated Red Blood 1 H Cells % Immature 0.030 Granulocytes # Neutrophils # Neutrophils # 2.7 (Manual) Band Neutrophils # 0.8 H Lymphocytes (Manual) 0.3 L Lymphocytes # Reactive Lymphocytes 0.0 # Monocytes # Monocytes # (Manual) 0.2 L Eosinophils # Basophils # Nucleated Red Blood Cells # Toxic Granulation 1+ Platelet Estimate NORMAL Giant Platelets 1 H Polychromasia 1+ Sodium Level 138 Potassium Level 4.2 Chloride Level 106 Carbon Dioxide Level 27 Anion Gap 5 Blood Urea Nitrogen 24 H Creatinine 0.32 L Est Glomerular > 60 Filtrat Rate mL/min Glucose Level 211 Calcium Level 8.1 L Bedside Glucose 190 177 152 Subjective 24 Hr Interval Summary Subjective hx not possible: pt non-verbal Exam/Review of Systems Exam Vitals Vital Signs Date Temp Pulse Resp B/P (MAP) Pulse Ox O2 O2 Flow FiO2 Time Delivery Rate 01/26/19 98.0 58 18 135/72 97 Room Air 07:32 (93) 01/24/19 3.0 20:00 Intake and Output 01/25/19 01/25/19 01/26/19 1515:00 23:00 07:00 IntakeIntake Total 1000 ml 1300 ml 1080 ml BalanceBalance 1000 ml 1300 ml 1080 ml Constitutional: non-verbal Respiratory: clear to auscultation Cardiovascular: regular rate and rhythm Gastrointestinal: soft; No distended Musculoskeletal: nl extremities to inspection Results Results 24hrs Laboratory Tests Test 01/25/19 17:41 01/25/19 20:40 01/25/19 22:17 01/26/19 01:23 Bedside Glucose 236 H 230 H 198 227 H Test 01/26/19 04:45 01/26/19 05:51 01/26/19 08:49 01/26/19 12:49 White Blood Count 4.0 L Red Blood Count 3.74 L Hemoglobin 10.9 L Hematocrit 32.6 L Mean Corpuscular 87.2 Volume Mean Corpuscular 29.1 Hemoglobin Mean Corpuscular 33.4 Hemoglobin Concent Red Cell 14.0 Distribution Width Platelet Count 139 L Mean Platelet Volume 11.2 H Immature 0.800 H Granulocytes % Neutrophils % Segmented 66 Neutrophils % (Manual) Band Neutrophils % 20 H (Manual) Lymphocytes % Lymphocytes % 8 L (Manual) Reactive Lymphocytes 1 H % (Manual) Monocytes % Monocytes % (Manual) 5 Eosinophils % Basophils % Nucleated Red Blood 1 H Cells % Immature 0.030 Granulocytes # Neutrophils # Neutrophils # 2.7 (Manual) Band Neutrophils # 0.8 H Lymphocytes (Manual) 0.3 L Lymphocytes # Reactive Lymphocytes 0.0 # Monocytes # Monocytes # (Manual) 0.2 L Eosinophils # Basophils # Nucleated Red Blood Cells # Toxic Granulation 1+ Platelet Estimate NORMAL Giant Platelets 1 H Polychromasia 1+ Sodium Level 138 Potassium Level 4.2 Chloride Level 106 Carbon Dioxide Level 27 Anion Gap 5 Blood Urea Nitrogen 24 H Creatinine 0.32 L Est Glomerular > 60 Filtrat Rate mL/min Glucose Level 211 Calcium Level 8.1 L Bedside Glucose 190 177 152 Medications Medication Current Medications IV Flush (NS 3 ml) 3 ml PER PROTOCOL IV ; Start 01/23/19 at 18:00 Morphine Sulfate (morphine) 2 mg Q4H PRN IV .SEVERE PAIN 7-10 Last administered on 01/24/19 21:44; Admin Dose 2 MG; Start 01/23/19 at 18:00 Pantoprazole (Protonix Iv) 40 mg DAILY@06 IV Last administered on 01/26/19 0 5:50; Admin Dose 40 MG; Start 01/24/19 at 06:00 Levetiracetam 100 ml @ 400 mls/hr Q12 IVPB Last administered on 01/26/19 08:42; Admin Dose 400 MLS/HR; Start 01/23/19 at 23:00 Piperacillin Sod/ Tazobactam Sod 100 ml @ 200 mls/hr Q6 IVPB Last administered on 01/26/19 12:21; Admin Dose 200 MLS/HR; Start 01/24/19 at 00:00 Dexamethasone (Decadron) 4 mg BID PO Last administered on 01/25/19 09:06; Admin Dose 4 MG; Start 01/24/19 at 12:30; Status Hold Diagnostic Test (Pha) (Accu-Chek) 02 XX ; Start 01/25/19 at 02:00 Insulin Aspart (Novolog Insulin Pen) NOVOLOG *MILD* ALGORI... Q4 SC Last administered on 4/26/19at 12:57; Admin Dose 1 UNIT; Start 01/24/19 at 17:00 Miscellaneous Information 1 ea NOTE XX ; Start 01/24/19 at 16:30 Glucose (Glutose) 15 gm Q15M PRN PO DECREASED GLUCOSE; Start 01/24/19 at 16:30 Glucose (Glutose) 22.5 gm Q15M PRN PO DECREASED GLUCOSE; Start 01/24/19 at 1 6:30 Dextrose (D50w Syringe) 25 ml Q15M PRN IV DECREASED GLUCOSE; Start 01/24/19 at 16:30 Dextrose (D50w Syringe) 50 ml Q15M PRN IV DECREASED GLUCOSE; Start 01/24/19 at 16:30 Glucagon (Glucagen) 1 mg Q15M PRN IM DECREASED GLUCOSE; Start 01/24/19 at 16:30 Glucose (Glutose) 15 gm Q15M PRN BUCCAL DECREASED GLUCOSE; Start 01/24/19 at 16:30 Potassium Chloride/Sodium Chloride 1,000 ml @ 80 mls/hr [id number] IV Last administered on 01/26/19at 15:27; Admin Dose 80 MLS/HR; Start 01/24/19 at 20:30 Insulin Glargine (Lantus) 14 units DAILY@2000 SC Last administered on 01/25/19at 22:33; Admin Dose 14 UNITS; Start 01/25/19 at 20:00 Dexamethasone (Decadron) 2 mg Q12 IV Last administered on 01/26/19at 11:12; Admin Dose 2 MG; Start 01/26/19 at 10:30 ELIZABETH GOODWIN Jan 26, 2019 16:00
[2019-01-26 17:19] VITALS: BP 157/81; PULSE 57; RESP 18
[2019-01-26 19:15] VITALS: BP 144/65; PULSE 59; RESP 18
[2019-01-26 20:00] VITALS: BP 133/59; PULSE 61
[2019-01-26] MEDS: INSULIN GLARGINE [LANTus] (100 UNITS/ML) SYG SC SCH (20:54)
[2019-01-27] VITALS (9 sets, daily range): BP systolic 132–170; BP diastolic 55–88; PULSE 56–61; RESP 18
[2019-01-27] MEDS: PIPER-TAZO 3.375 GM IV (PMX) 100 ML IVPB SCH ×4 (00:37→18:03)
[2019-01-27] MEDS: INSULIN ASPART [NOVOLOG] 3 ML PEN SC SCH ×6 (00:41→21:00)
[2019-01-27] MEDS: ACCU-CHEK XX SCH (02:00)
[2019-01-27] MEDS: NS + KCL 20 MEQ 1,000 ML IV SCH ×2 (05:41→21:48)
[2019-01-27] MEDS: PANTOPRAZOLE 40 MG INJ IV SCH (05:41)
[2019-01-27] MEDS: DEXAMETHASONE 4 MG/ML 1 ML INJ IV SCH ×2 (08:46→21:05)
[2019-01-27] MEDS: LEVETIRACETAM 500 MG (PMX) 100 ML IVPB SCH ×2 (08:47→21:05)
--- NOTE | 2019-01-27 12:20 | PN ---
Date/Time of Note Date/Time of Note DATE: 01/27/19 TIME: 12:19 Assessment/Plan VTE Prophylaxis Risk score (from [facility]0 risk: 7 SCD applied (from [facility]): Yes Pharmacological prophylaxis: NA/contraindicated Pharm contraindication: surgical contra Lines/Catheters IV Catheter Type (from [facility]): Peripheral IV Urinary Cath still in place: No Assessment/Plan Hospital Course 1. Abdominal pain secondary to diverticulitis with perforation CT abdomen does demonstrate diverticulitis with perforation, no evidence of free air on KUB Surgical consultation with Dr. Fuentes appreciated, plan for now is to continue IV antibiotics n.p.o. status and repeat CT abdomen in several days Zosyn IV PPI IV Enema as needed 2. Stage IV brain cancer Family reports that patient receives care at [facility] and has been told that there is no clear evidence of further brain mass Patient is status post 2 surgical resections as well as chemotherapy and radiation, patient last received chemotherapy several weeks ago and began to become somnolent 3. Encephalopathy likely secondary to history of surgical resection as well as radiation therapy to the brain Patient became more somnolent several weeks ago and is currently nonverbal and nonambulatory, etiology is likely secondary to previous surgeries and radiation, previous brain imaging showed some enhancement in the brain but no evidence of malignancy Continue steroids which appear to have been given for enhancement noted on brain imaging but not for a clear brain mass 4. History of diabetes Lantus and sliding scale Prophylaxis: SCDs DC planning: Continue IV antibiotics and follow-up with repeat imaging in the next several days Result Diagram: 01/26/19 0445 01/26/19 0445 Results 24hrs Laboratory Tests Test 01/26/19 12:49 01/26/19 17:46 01/26/19 20:53 01/27/19 00:36 Bedside Glucose 152 164 168 141 Test 01/27/19 05:42 01/27/19 08:44 Bedside Glucose 124 101 Subjective 24 Hr Interval Summary Subjective hx not possible: pt non-verbal Exam/Review of Systems Exam Vitals Vital Signs Date Temp Pulse Resp B/P (MAP) Pulse Ox O2 O2 Flow FiO2 Time Delivery Rate 01/27/19 59 18 169/81 10:45 (110) 01/27/19 Nasal 2.0 08:52 Cannula 01/27/19 97.6 96 08:39 Intake and Output 01/26/19 01/26/19 01/27/19 1515:00 23:00 07:00 IntakeIntake Total 200 ml 1400 ml 1000 ml BalanceBalance 200 ml 1400 ml 1000 ml Constitutional: non-verbal Respiratory: clear to auscultation Cardiovascular: regular rate and rhythm Gastrointestinal: soft; No distended Musculoskeletal: nl extremities to inspection Results Results 24hrs Laboratory Tests Test 01/26/19 12:49 01/26/19 17:46 01/26/19 20:53 01/27/19 00:36 Bedside Glucose 152 164 168 141 Test 01/27/19 05:42 01/27/19 08:44 Bedside Glucose 124 101 Medications Medication Current Medications IV Flush (NS 3 ml) 3 ml PER PROTOCOL IV ; Start 01/23/19 at 18:00 Morphine Sulfate (morphine) 2 mg Q4H PRN IV .SEVERE PAIN 7-10 Last administered on 01/24/19at 21:44; Admin Dose 2 MG; Start 01/23/19 at 18:00 Pantoprazole (Protonix Iv) 40 mg DAILY@06 IV Last administered on 01/27/19at 05:41; Admin Dose 40 MG; Start 01/24/19 at 06:00 Levetiracetam 100 ml @ 400 mls/hr Q12 IVPB Last administered on 01/27/19at 08:47; Admin Dose 400 MLS/HR; Start 01/23/19 at 23:00 Piperacillin Sod/ Tazobactam Sod 100 ml @ 200 mls/hr Q6 IVPB Last administered on 01/27/19at 05:41; Admin Dose 200 MLS/HR; Start 01/24/19 at 00:00 Dexamethasone (Decadron) 4 mg BID PO Last administered on 01/25/19at 09:06; Admin Dose 4 MG; Start 01/24/19 at 12:30; Status Hold Diagnostic Test (Pha) (Accu-Chek) 1 ea 02 XX ; Start 01/25/19 at 02:00 Insulin Aspart (Novolog Insulin Pen) NOVOLOG *MILD* ALGORI... Q4 SC Last administered on 01/27/19at 00:41; Admin Dose 1 UNIT; Start 01/24/19 at 17:00 Miscellaneous Information 1 ea NOTE XX ; Start 01/24/19 at 16:30 Glucose (Glutose) 15 gm Q15M PRN PO DECREASED GLUCOSE; Start 01/24/19 at 16:30 Glucose (Glutose) 22.5 gm Q15M PRN PO DECREASED GLUCOSE; Start 01/24/19 at 16:30 Dextrose (D50w Syringe) 25 ml Q15M PRN IV DECREASED GLUCOSE; Start 01/24/19 at 16:30 Dextrose (D50w Syringe) 50 ml Q15M PRN IV DECREASED GLUCOSE; Start 01/24/19 at 16:30 Glucagon (Glucagen) 1 mg Q15M PRN IM DECREASED GLUCOSE; Start 01/24/19 at 16:30 Glucose (Glutose) 15 gm Q15M PRN BUCCAL DECREASED GLUCOSE; Start 01/24/19 at 16 :30 Potassium Chloride/Sodium Chloride 1,000 ml @ 80 mls/hr [id number] IV Last administered on 01/27/19at 05:41; Admin Dose 80 MLS/HR; Start 01/24/19 at 20:30 Insulin Glargine (Lantus) 14 units DAILY@2000 SC Last administered on 01/26/19at 20:54; Admin Dose 14 UNITS; Start 01/25/19 at 20:00 Dexamethasone (Decadron) 2 mg Q12 IV Last administered on 01/27/19at 08:46; Admin Dose 2 MG; Start 01/26/19 at 10:30 ELIZABETH GOODWIN Jan 27, 2019 12:20
[2019-01-27] MEDS: morphine 2 MG INJ IV PRN (12:27)
[2019-01-27] MEDS ORDERED: SOD CHLORIDE 0.9% 100 ML ONE (14:55)
[2019-01-27] MEDS ORDERED: IOHEXOL 300MG/ML 150 ML BTL ONE (14:55)
[2019-01-27] MEDS: INSULIN GLARGINE [LANTus] (100 UNITS/ML) SYG SC SCH (21:08)
[2019-01-28] MEDS: PIPER-TAZO 3.375 GM IV (PMX) 100 ML IVPB SCH ×4 (00:37→18:14)
[2019-01-28] MEDS: INSULIN ASPART [NOVOLOG] 3 ML PEN SC SCH ×6 (01:00→20:41)
--- NOTE | 2019-01-28 01:30 | PN ---
Date/Time of Note Date/Time of Note DATE: 01/27/19 TIME: 23:26 Assessment/Plan Lines/Catheters IV Catheter Type (from [facility]): Peripheral IV Figueroa in Place (from [facility]): No Assessment/Plan Chief Complaint/Hosp Course 1. Perforated diverticulitis w small pneumoperitoneum: family would like to pursue conservative management. Bowel function. -Nutrition -abx -repeat imaging pending 2. Stage 4 cancer, sp tumor resection and radiation -Oncology/neuro follow-up -Supportive 3. Leukopenia: -Monitor 4. Normocytic normochromic anemia: -Monitor and transfuse as needed 5. Thrombocytopenia: -Monitor; consider changing antibiotics if persistent 6. Obesity BMI: 31 -diet and exercise optimization -encourage weight loss 7. Dyslipidemia, hypertension history -Highly encouraged weight loss -Medical management 8. Hyperglycemia with glucosuria: Currently on steroids -Glucose management Thank you, Late entry 01/27 Subjective 24 Hr Interval Summary Bowel function. No reports of abdominal pain or discomfort. No fevers, chills, sob, congested cough, cp, palpitations, chavarria, dizziness, nausea, vomiting, diarrhea, dysuria. Exam/Review of Systems Vital Signs Vitals Vital Signs Date Temp Pulse Resp B/P (MAP) Pulse Ox O2 O2 Flow FiO2 Time Delivery Rate 01/27/19 98.9 56 18 141/76 95 20:33 (97) 01/27/19 Nasal 15:09 Cannula 01/27/19 2.0 12:34 Intake and Output 01/27/19 01/27/19 01/28/19 1515:00 23:00 07:00 IntakeIntake Total 200 ml 1200 ml BalanceBalance 200 ml 1200 ml Exam Free Text/Dictation Constitutional: NAD, BMI 31 Psych: nl mood/affect; No anxiety Head: normocephalic, atraumatic, other (Left scalp incision sites healed) Eyes: nl conjunctiva, nl lids ENMT: nl external ears & nose, nl lips & teeth, nl nasal mucosa & septum Neck: supple, non-tender Respiratory: normal air movement; No congested cough Cardiovascular: regular rate and rhythm, nl pulses; No edema Gastrointestinal: soft, distended (Minimal); nonrigid No tender Genitourinary - Female: nl external genitalia Musculoskeletal: nl extremities to inspection Extremities: normal pulses; No edema Neurological: No nl speech (Repetitive words), No nl strength Skin: No rash or lesions Results Result Diagram: 01/26/19 0445 01/26/19 0445 LOUIS PERDOMO MD Jan 28, 2019 01:29
[2019-01-28 01:58] VITALS: BP 165/80; PULSE 57; RESP 18
[2019-01-28] MEDS: ACCU-CHEK XX SCH (02:00)
[2019-01-28] MEDS: PANTOPRAZOLE 40 MG INJ IV SCH (05:28)
[2019-01-28 06:23] VITALS: BP 133/68; PULSE 61
[2019-01-28 08:10] VITALS: BP 169/83; PULSE 62; RESP 15
[2019-01-28] MEDS: DEXAMETHASONE 4 MG/ML 1 ML INJ IV SCH (09:30)
[2019-01-28] MEDS: LEVETIRACETAM 500 MG (PMX) 100 ML IVPB SCH ×2 (09:31→20:35)
[2019-01-28] MEDS: NS + KCL 20 MEQ 1,000 ML IV SCH (11:35)
--- NOTE | 2019-01-28 12:58 | PN ---
Date/Time of Note Date/Time of Note DATE: 01/28/19 TIME: 12:55 Assessment/Plan VTE Prophylaxis [place] [facility] [place]: 7 SCD applied [place] [facility] [place] Yes Pharmacological prophylaxis: NA/contraindicated Pharm contraindication: other Lines/Catheters IV Catheter Type (from [facility]): Peripheral IV Urinary Cath still in place: No Assessment/Plan Hospital Course 1. Abdominal pain secondary to diverticulitis with perforation CT abdomen on arrival revealed diverticulitis with perforation, no evidence of free air on KUB Surgical consultation with Dr. Fuentes appreciated, plan has been to continue IV antibiotics and n.p.o. status Patient now with repeat CT abdomen that shows Interval partial resorption of previously noted pneumoperitoneum Have discussed repeat CT with surgery and will start a clear liquid diet Continue Zosyn IV PPI IV 2. Stage IV brain cancer Family reports that patient receives care at [place] and has been told that there is no clear evidence of further brain mass Patient is status post 2 surgical resections as well as chemotherapy and radiation, patient last received chemotherapy several weeks ago and began to become somnolent 3. Encephalopathy likely secondary to history of surgical resection as well as radiation therapy to the brain Patient became more somnolent several weeks ago and is currently nonverbal and nonambulatory, etiology is likely secondary to previous surgeries and radiation, previous brain imaging showed some enhancement in the brain but no evidence of malignancy Continue steroids which appear to have been given for enhancement noted on brain imaging but not for a clear brain mass 4. History of diabetes Lantus and sliding scale Prophylaxis: SCDs DC planning: Start clears today and continue IV antibiotics, anticipate DC to home in the next several days, follow-up with surgery recommendations Result Diagram: 01/26/19 0445 01/26/19 0445 Results 24hrs Laboratory Tests Test 01/27/19 13:38 01/27/19 18:00 01/27/19 21:07 01/28/19 01:36 Bedside Glucose 119 128 96 134 Test 01/28/19 05:29 01/28/19 09:35 Bedside Glucose 110 101 Subjective 24 Hr Interval Summary Subjective hx not possible: pt non-verbal Exam/Review of Systems Exam Vitals Vital Signs Date Temp Pulse Resp B/P (MAP) Pulse Ox O2 O2 Flow FiO2 Time Delivery Rate 01/28/19 98.9 62 15 169/83 93 Room Air 08:10 (111) 01/27/19 2.0 12:34 Intake and Output 01/27/19 01/27/19 01/28/19 1515:00 23:00 07:00 IntakeIntake Total 200 ml 1200 ml 200 ml BalanceBalance 200 ml 1200 ml 200 ml Constitutional: non-verbal Respiratory: clear to auscultation Cardiovascular: regular rate and rhythm Gastrointestinal: soft; No distended Musculoskeletal: nl extremities to inspection Results Results 24hrs Laboratory Tests Test 01/27/19 13:38 01/27/19 18:00 01/27/19 21:07 01/28/19 01:36 Bedside Glucose 119 128 96 134 Test 01/28/19 05:29 01/28/19 09:35 Bedside Glucose 110 101 Medications Medication Current Medications IV Flush (NS 3 ml) 3 ml PER PROTOCOL IV ; Start 01/23/19 at 18:00 Morphine Sulfate (morphine) 2 mg Q4H PRN IV .SEVERE PAIN 7-10 Last administered on 01/27/19at 12:27; Admin Dose 2 MG; Start 01/23/19 at 18:00 Pantoprazole (Protonix Iv) 40 mg DAILY@06 IV Last administered on 01/28/19at 05:28; Admin Dose 40 MG; Start 01/24/19 at 06:00 Levetiracetam 100 ml @ 400 mls/hr Q12 IVPB Last administered on 01/28/19at 09:31; Admin Dose 400 MLS/HR; Start 01/23/19 at 23:00 Piperacillin Sod/ Tazobactam Sod 100 ml @ 200 mls/hr Q6 IVPB Last administered on 01/28/19at 12:07; Admin Dose 200 MLS/HR; Start 01/24/19 at 00:00 Dexamethasone (Decadron) 4 mg BID PO Last administered on 01/25/19 09:06; Admin Dose 4 MG; Start 01/24/19 at 12:30; Status Hold Diagnostic Test (Pha) (Accu-Chek) 1 ea 02 XX ; Start 01/25/19 at 02:00 Insulin Aspart (Novolog Insulin Pen) NOVOLOG *MILD* ALGORI... Q4 SC Last administered on 01/27/19at 00:41; Admin Dose 1 UNIT; Start 01/24/19 at 17:00 Miscellaneous Information 1 ea NOTE XX ; Start 01/24/19 at 16:30 Glucose (Glutose) 15 gm Q15M PRN PO DECREASED GLUCOSE; Start 01/24/19 at 16:30 Glucose (Glutose) 22.5 gm Q15M PRN PO DECREASED GLUCOSE; Start 01/24/19 at 16:30 Dextrose (D50w Syringe) 25 ml Q15M PRN IV DECREASED GLUCOSE; Start 01/24/19 at 16:30 Dextrose (D50w Syringe) 50 ml Q15M PRN IV DECREASED GLUCOSE; Start 01/24/19 at 16:30 Glucagon (Glucagen) 1 mg Q15M PRN IM DECREASED GLUCOSE; Start 01/24/19 at 16:30 Glucose (Glutose) 15 gm Q15M PRN BUCCAL DECREASED GLUCOSE; Start 01/24/19 at 16:30 Potassium Chloride/Sodium Chloride 1,000 ml @ 80 mls/hr [id number] IV Last administered on 01/28/19at 11:35; Admin Dose 80 MLS/HR; Start 01/24/19 at 20:30 Dexamethasone (Decadron) 2 mg Q12 IV Last administered on 01/28/19at 09:30; Admin Dose 2 MG; Start 01/26/19 at 10:30 Insulin Glargine (Lantus) 16 units DAILY@2000 SC Last administered on 01/27/19at 21:08; Admin Dose 16 UNITS; Start 01/27/19 at 20:00 ELIZABETH GOODWIN Jan 28, 2019 12:58
[2019-01-28] MEDS: DEXAMETHASONE 4 MG TAB PO SCH (20:35)
[2019-01-28] MEDS: INSULIN GLARGINE [LANTus] (100 UNITS/ML) SYG SC SCH (20:39)
[2019-01-28 20:49] VITALS: BP 160/88; PULSE 68; RESP 18
[2019-01-29] MEDS: PIPER-TAZO 3.375 GM IV (PMX) 100 ML IVPB SCH ×5 (01:07→23:58)
[2019-01-29] MEDS: NS + KCL 20 MEQ 1,000 ML IV SCH ×3 (01:07→16:22)
[2019-01-29] MEDS: ACCU-CHEK XX SCH (01:17)
[2019-01-29] MEDS: INSULIN ASPART [NOVOLOG] 3 ML PEN SC SCH ×6 (01:17→20:14)
--- NOTE | 2019-01-29 01:19 | PN ---
Date/Time of Note Date/Time of Note DATE: 01/28/19 TIME: 23:17 Assessment/Plan Lines/Catheters IV Catheter Type (from [facility]): Peripheral IV Figueroa in Place (from [facility]): No Assessment/Plan Chief Complaint/Hosp Course 1. Perforated diverticulitis w small pneumoperitoneum: family would like to pursue conservative management. Bowel function. Imaging noted. -Nutrition -abx 2. Stage 4 cancer, sp tumor resection and radiation -Oncology/neuro follow-up -Supportive 3. Leukopenia: -Monitor 4. Normocytic normochromic anemia: -Monitor and transfuse as needed 5. Thrombocytopenia: -Monitor; consider changing antibiotics if persistent 6. Obesity BMI: 31 -diet and exercise optimization -encourage weight loss 7. Dyslipidemia, hypertension history -Highly encouraged weight loss -Medical management 8. Hyperglycemia with glucosuria: Currently on steroids -Glucose management Thank you, Late entry 01/28 Subjective 24 Hr Interval Summary Repeat CT noted, improving. Liquids started. Bowel function. No reports of abdominal pain or discomfort. No fevers, chills, sob, congested cough, cp, palpitations, chavarria, dizziness, nausea, vomiting, diarrhea, dysuria. Exam/Review of Systems Vital Signs Vitals Vital Signs Date Temp Pulse Resp B/P (MAP) Pulse Ox O2 O2 Flow FiO2 Time Delivery Rate 01/28/19 99.1 68 18 160/88 98 Room Air 20:49 (112) 01/27/19 2.0 12:34 Intake and Output 01/28/19 01/28/19 01/29/19 1414:59 22:59 06:59 IntakeIntake Total 1400 ml 1000 ml BalanceBalance 1400 ml 1000 ml Exam Free Text/Dictation Constitutional: NAD, BMI 31 Psych: nl mood/affect; No anxiety Head: normocephalic, atraumatic, other (Left scalp incision sites healed) Eyes: nl conjunctiva, nl lids ENMT: nl external ears & nose, nl lips & teeth, nl nasal mucosa & septum Neck: supple, non-tender Respiratory: normal air movement; No congested cough Cardiovascular: regular rate and rhythm, nl pulses; No edema Gastrointestinal: soft, distended (Minimal); nonrigid No tender Genitourinary - Female: nl external genitalia Musculoskeletal: nl extremities to inspection Extremities: normal pulses; No edema Neurological: No nl speech (Repetitive words), No nl strength Skin: No rash or lesions Results Result Diagram: 01/26/19 0445 01/26/19 0445 LOUIS PERDOMO MD Jan 29, 2019 01:19
[2019-01-29 02:29] VITALS: BP 144/82; PULSE 63; RESP 18
[2019-01-29] MEDS: PANTOPRAZOLE 40 MG INJ IV SCH (05:33)
[2019-01-29 07:56] VITALS: BP 170/81; PULSE 56; RESP 18
[2019-01-29 08:22] VITALS: BP 165/87; PULSE 66; RESP 18
[2019-01-29] MEDS: DEXAMETHASONE 4 MG TAB PO SCH ×2 (09:48→20:14)
[2019-01-29] MEDS: LEVETIRACETAM 500 MG (PMX) 100 ML IVPB SCH ×2 (09:48→20:11)
--- NOTE | 2019-01-29 11:25 | PN ---
Date/Time of Note Date/Time of Note DATE: 01/29/19 TIME: 11:22 Assessment/Plan Lines/Catheters IV Catheter Type (from [email or web address] Peripheral IV Figueroa in Place (from [email or web address] No Assessment/Plan Chief Complaint/Hosp Course 1. Perforated diverticulitis w small pneumoperitoneum: family would like to pursue conservative management. Bowel function. Imaging noted. -Nutrition -abx 2. Stage 4 brain cancer, sp tumor resection and radiation -Oncology/neuro follow-up -Supportive 3. Leukopenia: -Monitor 4. Normocytic normochromic anemia: -Monitor and transfuse as needed 5. Thrombocytopenia: -Monitor; consider changing antibiotics if persistent 6. Obesity BMI: 31 -diet and exercise optimization -encourage weight loss 7. Dyslipidemia, HTN history -Highly encouraged weight loss -Medical management Thank you, Subjective 24 Hr Interval Summary Tolerating liquid diet. Bowel function. No abdominal pain. No fevers, chills, sob, congested cough, cp, palpitations, chavarria, dizziness, nausea, vomiting, dysuria. Labs noted. Exam/Review of Systems Vital Signs Vitals Vital Signs Date Temp Pulse Resp B/P (MAP) Pulse Ox O2 O2 Flow FiO2 Time Delivery Rate 01/29/19 98.5 66 18 165/87 97 08:22 (113) 01/29/19 Room Air 02:29 01/27/19 2.0 12:34 Intake and Output 01/28/19 01/28/19 01/29/19 1515:00 23:00 07:00 IntakeIntake Total 1400 ml 1100 ml 1600 ml BalanceBalance 1400 ml 1100 ml 1600 ml Exam Free Text/Dictation Constitutional: NAD, BMI 31 Psych: nl mood/affect; No anxiety Head: normocephalic, atraumatic, other (Left scalp incision sites healed) Eyes: nl conjunctiva, nl lids ENMT: nl external ears & nose, nl lips & teeth, nl nasal mucosa & septum Neck: supple, non-tender Respiratory: normal air movement; No congested cough Cardiovascular: regular rate and rhythm, nl pulses; No edema Gastrointestinal: soft, distended (Minimal); nonrigid, NT Genitourinary - Female: nl external genitalia Musculoskeletal: nl extremities to inspection Extremities: normal pulses; No edema Neurological: No nl speech (Repetitive words), No nl strength Skin: No rash or lesions Results Result Diagram: 01/29/19 0447 01/29/19 0447 LOUIS PERDOMO MD Jan 29, 2019 11:25
[2019-01-29 13:17] VITALS: BP 140/83; PULSE 63; RESP 18
--- NOTE | 2019-01-29 15:27 | PN ---
Date/Time of Note Date/Time of Note DATE: 01/29/19 TIME: 15:25 Assessment/Plan VTE Prophylaxis Risk score (from [facility]0 risk: 7 SCD applied ([place] [facility] [place] Yes Pharmacological prophylaxis: heparin Lines/Catheters IV Catheter Type (from [facility]): Peripheral IV Urinary Cath still in place: No Assessment/Plan Hospital Course EXAM Alert, interactive Expressive aphasia RUE weakness No abdominal pain to palpation Appears comfortable 1. Abdominal pain secondary to diverticulitis with perforation CT abdomen on arrival revealed diverticulitis with perforation, no evidence of free air on KUB Surgical consultation with Dr. Fuentes appreciated, plan has been to continue IV antibiotics and n.p.o. status Patient now with repeat CT abdomen that shows Interval partial resorption of previously noted pneumoperitoneum Repeat CT shows imporvement Continue Zosyn IV PPI IV 2. Stage IV brain cancer Family reports that patient receives care at [facility] and has been told that there is no clear evidence of further brain mass Patient is status post 2 surgical resections as well as chemotherapy and radiation, patient last received chemotherapy several weeks ago and began to become somnolent 3. Encephalopathy likely secondary to history of surgical resection as well as radiation therapy to the brain Patient became more somnolent several weeks ago and is currently nonverbal and nonambulatory, etiology is likely secondary to previous surgeries and radiation, previous brain imaging showed some enhancement in the brain but no evidence of malignancy Continue steroids which appear to have been given for enhancement noted on brain imaging but not for a clear brain mass 4. History of diabetes Lantus and sliding scale Prophylaxis: SCDs DC planning: Start clears today and continue IV antibiotics, anticipate DC to home in the next several days, follow-up with surgery recommendations Result Diagram: 01/29/19 0447 01/29/19 0447 Results 24hrs Laboratory Tests Test 01/28/19 17:57 01/28/19 20:37 01/29/19 01:13 01/29/19 04:47 Bedside Glucose 148 142 146 White Blood Count 4.3 L Red Blood Count 4.20 Hemoglobin 12.1 Hematocrit 35.5 L Mean Corpuscular 84.5 Volume Mean Corpuscular 28.8 L Hemoglobin Mean Corpuscular 34.1 Hemoglobin Concent Red Cell 13.8 Distribution Width Platelet Count 223 # Mean Platelet Volume 10.8 H Immature 1.900 H Granulocytes % Neutrophils % Segmented 44 Neutrophils % (Manual) Band Neutrophils % 38 H (Manual) Lymphocytes % 17 (Manual) Eosinophils % Metamyelocytes % 1 H (manual) Nucleated Red Blood 0.0 Cells % Immature 0.080 H Granulocytes # Neutrophils # Neutrophils # 2.0 (Manual) Band Neutrophils # 1.6 H Lymphocytes (Manual) 0.7 L Eosinophils # Metamyelocytes # 0.0 Platelet Estimate NORMAL Polychromasia 3+ Anisocytosis 1+ Microcytosis 1+ Sodium Level 137 Potassium Level 3.9 Chloride Level 105 Carbon Dioxide Level 27 Anion Gap 5 Blood Urea Nitrogen 9 Creatinine 0.32 L Est Glomerular > 60 Filtrat Rate mL/min Glucose Level 130 Calcium Level 8.4 Phosphorus Level 3.9 Magnesium Level 2.1 Test 01/29/19 05:32 01/29/19 08:33 01/29/19 12:43 Bedside Glucose 123 101 94 Subjective 24 Hr Interval Summary Free Text/Dictation Tolerating PO No abdominal pain Exam/Review of Systems Exam Vitals Vital Signs Date Temp Pulse Resp B/P (MAP) Pulse Ox O2 O2 Flow FiO2 Time Delivery Rate 01/29/19 98.3 63 18 140/83 94 13:17 (102) 01/29/19 Room Air 02:29 01/27/19 2.0 12:34 Intake and Output 01/28/19 01/28/19 01/29/19 1515:00 23:00 07:00 IntakeIntake Total 1400 ml 1100 ml 1600 ml BalanceBalance 1400 ml 1100 ml 1600 ml Results Results 24hrs Laboratory Tests Test 01/28/19 17:57 01/28/19 20:37 01/29/19 01:13 01/29/19 04:47 Bedside Glucose 148 142 146 White Blood Count 4.3 L Red Blood Count 4.20 Hemoglobin 12.1 Hematocrit 35.5 L Mean Corpuscular 84.5 Volume Mean Corpuscular 28.8 L Hemoglobin Mean Corpuscular 34.1 Hemoglobin Concent Red Cell 13.8 Distribution Width Platelet Count 223 # Mean Platelet Volume 10.8 H Immature 1.900 H Granulocytes % Neutrophils % Segmented 44 Neutrophils % (Manual) Band Neutrophils % 38 H (Manual) Lymphocytes % 17 (Manual) Eosinophils % Metamyelocytes % 1 H (manual) Nucleated Red Blood 0.0 Cells % Immature 0.080 H Granulocytes # Neutrophils # Neutrophils # 2.0 (Manual) Band Neutrophils # 1.6 H Lymphocytes (Manual) 0.7 L Eosinophils # Metamyelocytes # 0.0 Platelet Estimate NORMAL Polychromasia 3+ Anisocytosis 1+ Microcytosis 1+ Sodium Level 137 Potassium Level 3.9 Chloride Level 105 Carbon Dioxide Level 27 Anion Gap 5 Blood Urea Nitrogen 9 Creatinine 0.32 L Est Glomerular > 60 Filtrat Rate mL/min Glucose Level 130 Calcium Level 8.4 Phosphorus Level 3.9 Magnesium Level 2.1 Test 01/29/19 05:32 01/29/19 08:33 01/29/19 12:43 Bedside Glucose 123 101 94 Medications Medication Current Medications IV Flush (NS 3 ml) 3 ml PER PROTOCOL IV ; Start 01/23/19 at 18:00 Morphine Sulfate (morphine) 2 mg Q4H PRN IV .SEVERE PAIN 7-10 Last administered on 01/27/19 12:27; Admin Dose 2 MG; Start 01/23/19 at 18:00 Pantoprazole (Protonix Iv) 40 mg DAILY@06 IV Last administered on 01/29/19at 05:33; Admin Dose 40 MG; Start 01/24/19 at 06:00 Levetiracetam 100 ml @ 400 mls/hr Q12 IVPB Last administered on 01/29/19at 09:48; Admin Dose 400 MLS/HR; Start 01/23/19 at 23:00 Piperacillin Sod/ Tazobactam Sod 100 ml @ 200 mls/hr Q6 IVPB Last administered on 01/29/19at 12:45; Admin Dose 200 MLS/HR; Start 01/24/19 at 00:00 Dexamethasone (Decadron) 4 mg BID PO Last administered on 01/29/19at 09:48; Admi n Dose 4 MG; Start 01/24/19 at 12:30 Diagnostic Test (Pha) (Accu-Chek) 1 ea 02 XX ; Start 01/25/19 at 02:00 Insulin Aspart (Novolog Insulin Pen) NOVOLOG *MILD* ALGORI... Q4 SC Last administered on 01/29/19at 01:17; Admin Dose 1 UNIT; Start 01/24/19 at 17:00 Miscellaneous Information 1 ea NOTE XX ; Start 01/24/19 at 16:30 Glucose (Glutose) 15 gm Q15M PRN PO DECREASED GLUCOSE; Start 01/24/19 at 16:30 Glucose (Glutose) 22.5 gm Q15M PRN PO DECREASED GLUCOSE; Start 01/24/19 at 16:30 Dextrose (D50w Syringe) 25 ml Q15M PRN IV DECREASED GLUCOSE; Start 01/24/19 at 16:30 Dextrose (D50w Syringe) 50 ml Q15M PRN IV DECREASED GLUCOSE; Start 01/24/19 at 16:30 Glucagon (Glucagen) 1 mg Q15M PRN IM DECREASED GLUCOSE; Start 01/24/19 at 16:30 Glucose (Glutose) 15 gm Q15M PRN BUCCAL DECREASED GLUCOSE; Start 01/24/19 at 16:30 Potassium Chloride/Sodium Chloride 1,000 ml @ 80 mls/hr [id number] IV Last admi nistered on 01/29/19at 01:07; Admin Dose 80 MLS/HR; Start 01/24/19 at 20:30 Insulin Glargine (Lantus) 16 units DAILY@2000 SC Last administered on 01/28/19at 20:39; Admin Dose 16 UNITS; Start 01/27/19 at 20:00 RAVI MURCIA MD Jan 29, 2019 15:27
[2019-01-29 20:14] VITALS: BP 163/86; PULSE 57; RESP 18
[2019-01-29] MEDS: INSULIN GLARGINE [LANTus] (100 UNITS/ML) SYG SC SCH (20:16)
[2019-01-30] MEDS: INSULIN ASPART [NOVOLOG] 3 ML PEN SC SCH ×6 (01:00→21:00)
[2019-01-30] MEDS: ACCU-CHEK XX SCH (01:17)
[2019-01-30 02:43] VITALS: BP 147/71; PULSE 54; RESP 18
[2019-01-30] MEDS: PANTOPRAZOLE 40 MG INJ IV SCH (05:08)
[2019-01-30] MEDS: NS + KCL 20 MEQ 1,000 ML IV SCH ×2 (05:09→19:40)
[2019-01-30] MEDS: PIPER-TAZO 3.375 GM IV (PMX) 100 ML IVPB SCH ×4 (05:09→23:54)
[2019-01-30 08:29] VITALS: BP 183/86; PULSE 58; RESP 18
[2019-01-30] MEDS: LEVETIRACETAM 500 MG (PMX) 100 ML IVPB SCH ×2 (09:25→21:20)
[2019-01-30] MEDS: DEXAMETHASONE 4 MG TAB PO SCH ×2 (09:29→21:20)
--- NOTE | 2019-01-30 09:59 | PN ---
Date/Time of Note Date/Time of Note DATE: 01/30/19 TIME: 09:54 Assessment/Plan Lines/Catheters IV Catheter Type (from [facility]): Peripheral IV Figueroa in Place (from [facility]): No Assessment/Plan Chief Complaint/Hosp Course 1. Perforated diverticulitis w small pneumoperitoneum: family would like to pursue conservative management. Bowel function. Imaging noted. -Nutrition > advance as tolerated -abx 2. Stage 4 brain cancer, sp tumor resection and radiation -Oncology/neuro follow-up -Supportive 3. Leukopenia: -Monitor 4. Normocytic normochromic anemia: -Monitor and transfuse as needed 5. Thrombocytopenia: -Monitor; consider changing antibiotics if persistent 6. Obesity BMI: 31 -diet and exercise optimization -encourage weight loss 7. Dyslipidemia, HTN history -Highly encouraged weight loss -Medical management Thank you, Subjective 24 Hr Interval Summary Tolerating liquid diet. Bowel function. No abdominal pain. No fevers, chills, sob, congested cough, cp, palpitations, chavarria, dizziness, nausea, vomiting, dysuria. Labs noted. Exam/Review of Systems Vital Signs Vitals Vital Signs Date Temp Pulse Resp B/P (MAP) Pulse Ox O2 O2 Flow FiO2 Time Delivery Rate 01/30/19 98.5 58 18 183/86 100 Room Air 08:29 (118) 01/27/19 2.0 12:34 Intake and Output 01/29/19 01/29/19 01/30/19 1515:00 23:00 07:00 IntakeIntake Total 400 ml 1440 ml 1400 ml BalanceBalance 400 ml 1440 ml 1400 ml Exam Free Text/Dictation Constitutional: NAD, BMI 31 Psych: nl mood/affect; No anxiety Head: normocephalic, atraumatic, other (Left scalp incision sites healed) Eyes: nl conjunctiva, nl lids ENMT: nl external ears & nose, nl lips & teeth, nl nasal mucosa & septum Neck: supple, non-tender Respiratory: normal air movement; No congested cough Cardiovascular: regular rate and rhythm, nl pulses; No edema Gastrointestinal: soft, distended (Minimal); nonrigid, NT Genitourinary - Female: nl external genitalia Musculoskeletal: nl extremities to inspection Extremities: normal pulses; No edema Neurological: No nl speech (Repetitive words), No nl strength Skin: No rash or lesions Results Result Diagram: 01/29/19 0447 01/29/19 0447 LOUIS PERDOMO MD Jan 30, 2019 09:59
[2019-01-30 10:00] VITALS: BP 156/84
--- NOTE | 2019-01-30 13:56 | PN ---
Date/Time of Note Date/Time of Note DATE: 01/30/19 TIME: 13:55 Assessment/Plan VTE Prophylaxis Risk score (from Ns)>0 risk: 5 SCD applied (from Ns): Yes Pharmacological prophylaxis: heparin Lines/Catheters IV Catheter Type (from [facility]): Peripheral IV Urinary Cath still in place: No Assessment/Plan Hospital Course EXAM Alert, interactive Expressive aphasia RUE weakness No abdominal pain to palpation Appears comfortable 1. Abdominal pain secondary to diverticulitis with perforation CT abdomen on arrival revealed diverticulitis with perforation, no evidence of free air on KUB Surgical consultation with Dr. Fuentes appreciated, plan has been to continue IV antibiotics and n.p.o. status Patient now with repeat CT abdomen that shows Interval partial resorption of previously noted pneumoperitoneum Repeat CT shows imporvement Continue Zosyn IV PPI IV 2. Stage IV brain cancer Family reports that patient receives care at [facility] and has been told that there is no clear evidence of further brain mass Patient is status post 2 surgical resections as well as chemotherapy and radiation, patient last received chemotherapy several weeks ago and began to become somnolent 3. Encephalopathy likely secondary to history of surgical resection as well as radiation therapy to the brain Patient became more somnolent several weeks ago and is currently nonverbal and nonambulatory, etiology is likely secondary to previous surgeries and radiation, previous brain imaging showed some enhancement in the brain but no evidence of malignancy Continue steroids which appear to have been given for enhancement noted on brain imaging but not for a clear brain mass 4. History of diabetes Lantus and sliding scale Prophylaxis: SCDs DC planning: Start regular diet today and continue IV antibiotics, anticipate DC to home tomorrow, follow-up with surgery recommendations Result Diagram: 01/29/19 0447 01/29/19 0447 Results 24hrs Laboratory Tests Test 01/29/19 17:51 01/29/19 20:13 01/30/19 01:16 01/30/19 05:14 Bedside Glucose 130 111 124 127 Test 01/30/19 09:31 01/30/19 13:11 Bedside Glucose 94 112 Subjective 24 Hr Interval Summary Free Text/Dictation Doing well Tolerating clears Exam/Review of Systems Exam Vitals Vital Signs Date Temp Pulse Resp B/P (MAP) Pulse Ox O2 O2 Flow FiO2 Time Delivery Rate 01/30/19 98.5 58 18 183/86 100 Room Air 08:29 (118) 01/27/19 2.0 12:34 Intake and Output 01/29/19 01/29/19 01/30/19 1515:00 23:00 07:00 IntakeIntake Total 400 ml 1440 ml 1400 ml BalanceBalance 400 ml 1440 ml 1400 ml Results Results 24hrs Laboratory Tests Test 01/29/19 17:51 01/29/19 20:13 01/30/19 01:16 01/30/19 05:14 Bedside Glucose 130 111 124 127 Test 01/30/19 09:31 01/30/19 13:11 Bedside Glucose 94 112 Medications Medication Current Medications IV Flush (NS 3 ml) 3 ml PER PROTOCOL IV ; Start 01/23/19 at 18:00 Morphine Sulfate (morphine) 2 mg Q4H PRN IV .SEVERE PAIN 7-10 Last administered on 01/27/19at 12:27; Admin Dose 2 MG; Start 01/23/19 at 18:00 Pantoprazole (Protonix Iv) 40 mg DAILY@06 IV Last administered on 01/30/19at 05:08; Admin Dose 40 MG; Start 01/24/19 at 06:00 Levetiracetam 100 ml @ 400 mls/hr Q12 IVPB Last administered on 01/30/19at 09:25; Admin Dose 400 MLS/HR; Start 01/23/19 at 23:00 Piperacillin Sod/ Tazobactam Sod 100 ml @ 200 mls/hr Q6 IVPB Last administered on 01/30/19at 12:36; Admin Dose 200 MLS/HR; Start 01/24/19 at 00:00 Dexamethasone (Decadron) 4 mg BID PO Last administered on 01/30/19at 09:29; Admin Dose 4 MG; Start 01/24/19 at 12:30 Diagnostic Test (Pha) (Accu-Chek) 1 ea 02 XX ; Start 01/25/19 at 02:00 Insulin Aspart (Novolog Insulin Pen) NOVOLOG *MILD* ALGORI... Q4 SC Last administered on 01/29/19at 01:17; Admin Dose 1 UNIT; Start 01/24/19 at 17:00 Miscellaneous Information 1 ea NOTE XX ; Start 01/24/19 at 16:30 Glucose (Glutose) 15 gm Q15M PRN PO DECREASED GLUCOSE; Start 01/24/19 at 16:30 Glucose (Glutose) 22.5 gm Q15M PRN PO DECREASED GLUCOSE; Start 01/24/19 at 16:30 Dextrose (D50w Syringe) 25 ml Q15M PRN IV DECREASED GLUCOSE; Start 01/24/19 at 16:30 Dextrose (D50w Syringe) 50 ml Q15M PRN IV DECREASED GLUCOSE; Start 01/24/19 at 16:30 Glucagon (Glucagen) 1 mg Q15M PRN IM DECREASED GLUCOSE; Start 01/24/19 at 16:30 Glucose (Glutose) 15 gm Q15M PRN BUCCAL DECREASED GLUCOSE; Start 01/24/19 at 16:30 Potassium Chloride/Sodium Chloride 1,000 ml @ 80 mls/hr [id number] IV Last administered on 01/30/19at 05:09; Admin Dose 80 MLS/HR; Start 01/24/19 at 20:30 Insulin Glargine (Lantus) 16 units DAILY@2000 SC Last administered on 01/29/19at 20:16; Admin Dose 16 UNITS; Start 01/27/19 at 20:00 RAVI MURCIA MD Jan 30, 2019 13:55
[2019-01-30] MEDS: morphine 2 MG INJ IV PRN (14:59)
[2019-01-30 15:21] VITALS: BP 178/94; PULSE 59; RESP 18
[2019-01-30 20:07] VITALS: BP 154/79; PULSE 57; RESP 18
[2019-01-30] MEDS: INSULIN GLARGINE [LANTus] (100 UNITS/ML) SYG SC SCH (21:22)
[2019-01-31] MEDS: INSULIN ASPART [NOVOLOG] 3 ML PEN SC SCH ×5 (01:00→20:24)
[2019-01-31] MEDS: ACCU-CHEK XX SCH (01:39)
[2019-01-31 02:37] VITALS: BP 169/92; PULSE 57; RESP 18
[2019-01-31] MEDS: PIPER-TAZO 3.375 GM IV (PMX) 100 ML IVPB SCH ×3 (06:03→17:58)
[2019-01-31] MEDS: PANTOPRAZOLE 40 MG INJ IV SCH (06:03)
[2019-01-31 08:00] VITALS: BP 179/84; PULSE 58; RESP 19
[2019-01-31] MEDS: LEVETIRACETAM 500 MG (PMX) 100 ML IVPB SCH ×2 (08:42→20:26)
[2019-01-31] MEDS: DEXAMETHASONE 4 MG TAB PO SCH ×2 (08:42→20:27)
--- NOTE | 2019-01-31 10:12 | PN ---
Date/Time of Note Date/Time of Note DATE: 01/31/19 TIME: 10:04 Assessment/Plan Lines/Catheters IV Catheter Type (from [facility]): Peripheral IV Figueroa in Place (from [facility]): No Assessment/Plan Chief Complaint/Hosp Course 1. Perforated diverticulitis w small pneumoperitoneum: family would like to pursue conservative management. Bowel function. Imaging noted. -Diet as tolerated -abx > with bandemia and leukopenia>trend 2. Stage 4 brain cancer, sp tumor resection and radiation -Oncology/neuro follow-up -Supportive 3. Leukopenia with bandemia: Afebrile -Trend 4. Normocytic normochromic anemia: -Monitor and transfuse as needed 5. Thrombocytopenia: Resolved -Monitor 6. Obesity BMI: 31 -diet and exercise optimization -encourage weight loss 7. Dyslipidemia, HTN history -Highly encouraged weight loss -Medical management Thank you. Patient seen and examined in collaboration with Dr. Abimael Fuentes. Subjective 24 Hr Interval Summary Tolerating solid diet. + Bowel function. No abdominal pain. No fevers, chills, sob, congested cough, cp, palpitations, chavarria, dizziness, nausea, vomiting, diarrhea, dysuria. Exam/Review of Systems Vital Signs Vitals Vital Signs Date Temp Pulse Resp B/P (MAP) Pulse Ox O2 O2 Flow FiO2 Time Delivery Rate 01/31/19 98.4 57 18 169/92 93 Room Air 02:37 (117) 01/27/19 2.0 12:34 Intake and Output 01/30/19 01/30/19 01/31/19 1515:00 23:00 07:00 IntakeIntake Total 200 ml 1850 ml 1050 ml BalanceBalance 200 ml 1850 ml 1050 ml Exam Free Text/Dictation Constitutional: NAD, BMI 31 Psych: nl mood/affect; No anxiety Head: normocephalic, atraumatic, other (Left scalp incision sites healed) Eyes: nl conjunctiva, nl lids ENMT: nl external ears & nose, nl lips & teeth, nl nasal mucosa & septum Neck: supple, non-tender Respiratory: normal air movement; No congested cough Cardiovascular: regular rate and rhythm, nl pulses; No edema Gastrointestinal: soft, nondistended; nonrigid, NT Genitourinary - Female: nl external genitalia Musculoskeletal: nl extremities to inspection Extremities: normal pulses; No edema Neurological: No nl speech (Repetitive words), No nl strength Skin: No rash or lesions Results Result Diagram: 01/29/19 0447 01/29/19 0447 MARY JANE DALY NP January 31, 2019 10:12
--- NOTE | 2019-01-31 13:10 | PN ---
Date/Time of Note Date/Time of Note DATE: 01/31/19 TIME: 13:06 Assessment/Plan VTE Prophylaxis Risk score (from Ns)>0 risk: 7 SCD applied (from Ns): Yes Pharmacological prophylaxis: heparin Lines/Catheters IV Catheter Type (from Nrs): Peripheral IV Urinary Cath still in place: No Assessment/Plan Hospital Course EXAM Alert, interactive Expressive aphasia RUE weakness No abdominal pain to palpation Appears comfortable 1. Abdominal pain secondary to diverticulitis with perforation CT abdomen on arrival revealed diverticulitis with perforation, no evidence of free air on KUB Surgical consultation with Dr. Fuentes appreciated, plan has been to continue IV antibiotics and n.p.o. status Patient now with repeat CT abdomen that shows Interval partial resorption of previously noted pneumoperitoneum Repeat CT shows imporvement Continue Zosyn IV PPI IV 2. Stage IV brain cancer Family reports that patient receives care at [facility] and has been told that there is no clear evidence of further brain mass Patient is status post 2 surgical resections as well as chemotherapy and radiation, patient last received chemotherapy several weeks ago and began to become somnolent 3. Encephalopathy likely secondary to history of surgical resection as well as radiation therapy to the brain Patient became more somnolent several weeks ago and is currently nonverbal and nonambulatory, etiology is likely secondary to previous surgeries and radiation, previous brain imaging showed some enhancement in the brain but no evidence of malignancy Continue steroids which appear to have been given for enhancement noted on brain imaging but not for a clear brain mass 4. History of diabetes Lantus and sliding scale Prophylaxis: SCDs DC planning: Started regular diet today and continue IV antibiotics, anticipate DC to home tomorrow, follow-up with surgery recommendations Result Diagram: 01/29/19 0447 01/29/19 0447 Results 24hrs Laboratory Tests Test 01/30/19 13:11 01/30/19 18:02 01/30/19 21:18 01/31/19 01:37 Bedside Glucose 112 135 118 104 Test 01/31/19 05:38 01/31/19 08:41 Bedside Glucose 108 86 Subjective 24 Hr Interval Summary Free Text/Dictation Tolerating PO diet No complaints No belly pain Offered dc. Can't go home until tomorrow son says Exam/Review of Systems Exam Vitals Vital Signs Date Temp Pulse Resp B/P (MAP) Pulse Ox O2 O2 Flow FiO2 Time Delivery Rate 01/31/19 98.3 58 19 179/84 96 08:00 (115) 01/31/19 Room Air 02:37 01/27/19 2.0 12:34 Intake and Output 01/30/19 01/30/19 01/31/19 1515:00 23:00 07:00 IntakeIntake Total 200 ml 1850 ml 1050 ml BalanceBalance 200 ml 1850 ml 1050 ml Results Results 24hrs Laboratory Tests Test 01/30/19 13:11 01/30/19 18:02 01/30/19 21:18 01/31/19 01:37 Bedside Glucose 112 135 118 104 Test 01/31/19 05:38 01/31/19 08:41 Bedside Glucose 108 86 Medications Medication Current Medications IV Flush (NS 3 ml) 3 ml PER PROTOCOL IV ; Start 01/23/19 at 18:00 Morphine Sulfate (morphine) 2 mg Q4H PRN IV .SEVERE PAIN 7-10 Last administered on 01/30/19at 14:59; Admin Dose 2 MG; Start 01/23/19 at 18:00 Pantoprazole (Protonix Iv) 40 mg DAILY@06 IV Last administered on 01/31/19at 06:03; Admin Dose 40 MG; Start 01/24/19 at 06:00 Levetiracetam 100 ml @ 400 mls/hr Q12 IVPB Last administered on 01/31/19at 08:42; Admin Dose 400 MLS/HR; Start 01/23/19 at 23:00 Piperacillin Sod/ Tazobactam Sod 100 ml @ 200 mls/hr Q6 IVPB Last administered on 01/31/19at 06:03; Admin Dose 200 MLS/HR; Start 01/24/19 at 00:00 Dexamethasone (Decadron) 4 mg BID PO Last administered on 01/31/19at 08:42; Admin Dose 4 MG; Start 01/24/19 at 12:30 Diagnostic Test (Pha) (Accu-Chek) 1 ea 02 XX ; Start 01/25/19 at 02:00 Miscellaneous Information 1 ea NOTE XX ; Start 01/24/19 at 16:30 Glucose (Glutose) 15 gm Q15M PRN PO DECREASED GLUCOSE; Start 01/24/19 at 16:30 Glucose (Glutose) 22.5 gm Q15M PRN PO DECREASED GLUCOSE; Start 01/24/19 at 16:30 Dextrose (D50w Syringe) 25 ml Q15M PRN IV DECREASED GLUCOSE; Start 01/24/19 at 16:30 Dextrose (D50w Syringe) 50 ml Q15M PRN IV DECREASED GLUCOSE; Start 01/24/19 at 16:30 Glucagon (Glucagen) 1 mg Q15M PRN IM DECREASED GLUCOSE; Start 01/24/19 at 16:30 Glucose (Glutose) 15 gm Q15M PRN BUCCAL DECREASED GLUCOSE; Start 01/24/19 at 16:30 Potassium Chloride/Sodium Chloride 1,000 ml @ 80 mls/hr [id number] IV Last administered on 01/30/19at 19:40; Admin Dose 80 MLS/HR; Start 01/24/19 at 20:30 Insulin Glargine (Lantus) 16 units DAILY@2000 SC Last administered on 01/30/19at 21:22; Admin Dose 16 UNITS; Start 01/27/19 at 20:00 Insulin Aspart (Novolog Insulin Pen) NOVOLOG *MILD* ALGORI... AC MEALS AND BEDTIME SC ; Start 01/31/19 at 11:10 RAVI MURCIA MD January 31, 2019 13:10
[2019-01-31 14:51] VITALS: BP 119/67; PULSE 67; RESP 18
[2019-01-31 19:35] VITALS: BP 138/83; PULSE 66; RESP 18
[2019-01-31] MEDS: INSULIN GLARGINE [LANTus] (100 UNITS/ML) SYG SC SCH (20:28)
[2019-02-01] MEDS: PIPER-TAZO 3.375 GM IV (PMX) 100 ML IVPB SCH ×5 (00:34→23:59)
[2019-02-01] MEDS: ACCU-CHEK XX SCH (02:00)
[2019-02-01 02:30] VITALS: BP 137/74; PULSE 58; RESP 16
[2019-02-01] MEDS: PANTOPRAZOLE 40 MG INJ IV SCH (05:35)
[2019-02-01] MEDS: INSULIN ASPART [NOVOLOG] 3 ML PEN SC SCH ×4 (07:50→21:00)
[2019-02-01 08:00] VITALS: BP 130/79; PULSE 58; RESP 18
--- NOTE | 2019-02-01 09:38 | PN ---
Date/Time of Note Date/Time of Note DATE: 02/01/19 TIME: 09:36 Assessment/Plan Lines/Catheters IV Catheter Type (from [facility]): Peripheral IV Figueroa in Place (from [facility]): No Assessment/Plan Chief Complaint/Hosp Course 1. Perforated diverticulitis w small pneumoperitoneum: family would like to pursue conservative management. Bowel function. Imaging noted. -Diet as tolerated -abx > with bandemia and leukopenia>trend (repeat labs ordered today) 2. Stage 4 brain cancer, sp tumor resection and radiation -Oncology/neuro follow-up -Supportive 3. Leukopenia with bandemia: Afebrile -Trend -as above 4. Normocytic normochromic anemia: -Monitor and transfuse as needed 5. Thrombocytopenia: Resolved -Monitor 6. Obesity BMI: 31 -diet and exercise optimization -encourage weight loss 7. Dyslipidemia, HTN history -Highly encouraged weight loss -Medical management Thank you. Patient seen and examined in collaboration with Dr. Abimael Fuentes. Subjective 24 Hr Interval Summary Feels well. Tolerating diet. + bowel function. No fevers, chills, sob, congested cough, cp, palpitations, chavarria, dizziness, n/v/d/dysuria. Exam/Review of Systems Vital Signs Vitals Vital Signs Date Temp Pulse Resp B/P (MAP) Pulse Ox O2 O2 Flow FiO2 Time Delivery Rate 02/01/19 97.5 58 18 130/79 96 08:00 (96) 01/31/19 Room Air 02:37 Intake and Output 01/31/19 01/31/19 02/01/19 1515:00 23:00 07:00 IntakeIntake Total 700 ml 400 ml 200 ml BalanceBalance 700 ml 400 ml 200 ml Exam Free Text/Dictation Constitutional: NAD, BMI 31 Psych: nl mood/affect; No anxiety Head: normocephalic, atraumatic, other (Left scalp incision sites healed) Eyes: nl conjunctiva, nl lids ENMT: nl external ears & nose, nl lips & teeth, nl nasal mucosa & septum Neck: supple, non-tender Respiratory: normal air movement; No congested cough Cardiovascular: regular rate and rhythm, nl pulses; No edema Gastrointestinal: soft, nondistended; nonrigid, NT Genitourinary - Female: nl external genitalia Musculoskeletal: nl extremities to inspection Extremities: normal pulses; No edema Neurological: No nl speech (Repetitive words), No nl strength Skin: No rash or lesions Results Result Diagram: 01/29/19 0447 01/29/19 0447 MARY JANE DALY NP February 01, 2019 09:37
[2019-02-01] MEDS: DEXAMETHASONE 4 MG TAB PO SCH ×2 (09:45→20:38)
[2019-02-01] MEDS: LEVETIRACETAM 500 MG (PMX) 100 ML IVPB SCH ×2 (09:45→20:38)
[2019-02-01] MEDS: morphine 2 MG INJ IV PRN (11:55)
--- NOTE | 2019-02-01 12:54 | PN ---
Date/Time of Note Date/Time of Note DATE: 02/01/19 TIME: 12:52 Assessment/Plan VTE Prophylaxis Risk score (from Nsg)>0 risk: 7 SCD applied (from Ns): Yes Pharmacological prophylaxis: heparin Lines/Catheters IV Catheter Type (from Nrsg): Peripheral IV Urinary Cath still in place: No Assessment/Plan Hospital Course EXAM Alert, interactive Expressive aphasia RUE weakness No abdominal pain to palpation Appears comfortable A/P: 63 yo female with brain cancer s/p resection who presented with perforated diverticulitis perforated diverticulitis: - conservative management with abx - pain control - appears to have resolved Stage IV brain cancer - concern that cancer has progressed leading to inability to ambulate. will MRI brain to assess History of diabetes Lantus and sliding scale Prophylaxis: SCDs DC planning: Unable to ambulate. Consider ARU vs SNF Result Diagram: 02/01/19 1029 01/29/19 0447 Results 24hrs Laboratory Tests Test 01/31/19 13:17 01/31/19 17:57 01/31/19 20:23 02/01/19 08:32 Bedside Glucose 138 193 185 121 Test 02/01/19 10:29 White Blood Count 4.3 L Red Blood Count 4.31 Hemoglobin 12.3 Hematocrit 36.5 L Mean Corpuscular Volume 84.7 Mean Corpuscular 28.5 L Hemoglobin Mean Corpuscular 33.7 Hemoglobin Concent Red Cell Distribution 13.4 Width Platelet Count 337 # Mean Platelet Volume 10.1 Immature Granulocytes % 3.200 H Neutrophils % 70.1 Lymphocytes % 19.7 Monocytes % 6.3 Eosinophils % 0.0 Basophils % 0.7 Nucleated Red Blood 0.0 Cells % Immature Granulocytes # 0.140 H Neutrophils # 3.0 Lymphocytes # 0.9 Monocytes # 0.3 Eosinophils # 0.0 Basophils # 0.0 Nucleated Red Blood 0.0 Cells # Subjective 24 Hr Interval Summary Free Text/Dictation Patient unable to ambulate as she was prior to admission Family is worried about progression of brain tumor and request neuroimaging Tolerating PO diet normally Exam/Review of Systems Exam Vitals Vital Signs Date Temp Pulse Resp B/P (MAP) Pulse Ox O2 O2 Flow FiO2 Time Delivery Rate 02/01/19 97.5 58 18 130/79 96 08:00 (96) 01/31/19 Room Air 02:37 Intake and Output 01/31/19 01/31/19 02/01/19 1515:00 23:00 07:00 IntakeIntake Total 700 ml 400 ml 200 ml BalanceBalance 700 ml 400 ml 200 ml Results Results 24hrs Laboratory Tests Test 01/31/19 13:17 01/31/19 17:57 01/31/19 20:23 02/01/19 08:32 Bedside Glucose 138 193 185 121 Test 02/01/19 10:29 White Blood Count 4.3 L Red Blood Count 4.31 Hemoglobin 12.3 Hematocrit 36.5 L Mean Corpuscular Volume 84.7 Mean Corpuscular 28.5 L Hemoglobin Mean Corpuscular 33.7 Hemoglobin Concent Red Cell Distribution 13.4 Width Platelet Count 337 # Mean Platelet Volume 10.1 Immature Granulocytes % 3.200 H Neutrophils % 70.1 Lymphocytes % 19.7 Monocytes % 6.3 Eosinophils % 0.0 Basophils % 0.7 Nucleated Red Blood 0.0 Cells % Immature Granulocytes # 0.140 H Neutrophils # 3.0 Lymphocytes # 0.9 Monocytes # 0.3 Eosinophils # 0.0 Basophils # 0.0 Nucleated Red Blood 0.0 Cells # Medications Medication Current Medications IV Flush (NS 3 ml) 3 ml PER PROTOCOL IV ; Start 01/23/19 at 18:00 Morphine Sulfate (morphine) 2 mg Q4H PRN IV .SEVERE PAIN 7-10 Last administered on 02/01/19at 11:55; Admin Dose 2 MG; Start 01/23/19 at 18:00 Pantoprazole (Protonix Iv) 40 mg DAILY@06 IV Last administered on 02/01/19 05:35; Admin Dose 40 MG; Start 01/24/19 at 06:00 Levetiracetam 100 ml @ 400 mls/hr Q12 IVPB Last administered on 02/01/19at 09:45; Admin Dose 400 MLS/HR; Start 01/23/19 at 23:00 Piperacillin Sod/ Tazobactam Sod 100 ml @ 200 mls/hr Q6 IVPB Last administered on 02/01/19at 05:35; Admin Dose 200 MLS/HR; Start 01/24/19 at 00:00 Dexamethasone (Decadron) 4 mg BID PO Last administered on 02/01/19at 09:45; Admin Dose 4 MG; Start 4/24/19 at 12:30 Diagnostic Test (Pha) (Accu-Chek) 1 ea 02 XX ; Start 01/25/19 at 02:00 Miscellaneous Information 1 ea NOTE XX ; Start 01/24/19 at 16:30 Glucose (Glutose) 15 gm Q15M PRN PO DECREASED GLUCOSE; Start 01/24/19 at 16:30 Glucose (Glutose) 22.5 gm Q15M PRN PO DECREASED GLUCOSE; Start 01/24/19 at 16:30 Dextrose (D50w Syringe) 25 ml Q15M PRN IV DECREASED GLUCOSE; Start 01/24/19 at 16:30 Dextrose (D50w Syringe) 50 ml Q15M PRN IV DECREASED GLUCOSE; Start 01/24/19 at 16:30 Glucagon (Glucagen) 1 mg Q15M PRN IM DECREASED GLUCOSE; Start 01/24/19 at 16:30 Glucose (Glutose) 15 gm Q15M PRN BUCCAL DECREASED GLUCOSE; Start 01/24/19 at 16:30 Insulin Glargine (Lantus) 16 units DAILY@2000 SC Last administered on 01/31/19at 20:28; Admin Dose 16 UNITS; Start 01/27/19 at 20:00 Insulin Aspart (Novolog Insulin Pen) NOVOLOG *MILD* ALGORITHM WITH MEALS BEDTIME SC ; Start 02/01/19 at 07:50 RAVI MURCIA MD February 01, 2019 12:54
[2019-02-01 14:10] VITALS: BP 136/77; PULSE 60; RESP 18
[2019-02-01 19:10] VITALS: BP 128/80; PULSE 65; RESP 18
[2019-02-01] MEDS: INSULIN GLARGINE [LANTus] (100 UNITS/ML) SYG SC SCH (21:01)
[2019-02-02 02:47] VITALS: BP 136/73; PULSE 60; RESP 18
[2019-02-02] MEDS: PIPER-TAZO 3.375 GM IV (PMX) 100 ML IVPB SCH ×4 (06:04→23:53)
[2019-02-02] MEDS: PANTOPRAZOLE 40 MG INJ IV SCH (06:04)
[2019-02-02 07:31] VITALS: BP 184/93; PULSE 77; RESP 18
[2019-02-02] MEDS: DEXAMETHASONE 4 MG TAB PO SCH ×2 (09:30→20:37)
[2019-02-02] MEDS: LEVETIRACETAM 500 MG (PMX) 100 ML IVPB SCH ×2 (09:30→20:37)
[2019-02-02] MEDS: INSULIN ASPART [NOVOLOG] 3 ML PEN SC SCH ×4 (09:31→20:45)
--- NOTE | 2019-02-02 11:19 | PN ---
Date/Time of Note Date/Time of Note DATE: 02/02/19 TIME: 11:11 Assessment/Plan Lines/Catheters IV Catheter Type (from [facility]): Saline Lock Figueroa in Place (from [facility]): No Assessment/Plan Chief Complaint/Hosp Course 1. Perforated diverticulitis w small pneumoperitoneum: family would like to pursue conservative management. Bowel function. Imaging noted. -Diet as tolerated -dc ok from surgical standpoint w oral abx for completion of 2 weeks. 2. Stage 4 brain cancer, sp tumor resection and radiation: repeat mri: Interval increase in size of a nodular lesion in the left posterior frontal lobe now measures 2.5 x 2.9 cm previously measures 2.3 x 2.5 cm -Oncology/neuro follow-up -Supportive 3. Leukopenia with bandemia: Afebrile -Trend -as above 4. Normocytic normochromic anemia: -Monitor and transfuse as needed 5. Thrombocytopenia: Resolved -Monitor 6. Obesity BMI: 31 -diet and exercise optimization -encourage weight loss 7. Dyslipidemia, HTN history -Highly encouraged weight loss -Medical management Thank you. Patient seen and examined in collaboration with Dr. Abimael Fuentes. Subjective 24 Hr Interval Summary Feels well. + Bowel function. No fevers, chills, sob, congested cough, cp, palpitations, chavarria, dizziness, n/v/d/dysuria. Exam/Review of Systems Vital Signs Vitals Vital Signs Date Temp Pulse Resp B/P (MAP) Pulse Ox O2 O2 Flow FiO2 Time Delivery Rate 02/02/19 97.8 77 18 184/93 96 Room Air 07:31 (123) Intake and Output 02/01/19 02/01/19 02/02/19 1515:00 23:00 07:00 IntakeIntake Total 400 ml 500 ml 200 ml BalanceBalance 400 ml 500 ml 200 ml Exam Free Text/Dictation Constitutional: NAD, BMI 31 Psych: nl mood/affect; No anxiety Head: normocephalic, atraumatic, other (Left scalp incision sites healed) Eyes: nl conjunctiva, nl lids ENMT: nl external ears & nose, nl lips & teeth, nl nasal mucosa & septum Neck: supple, non-tender Respiratory: normal air movement; No congested cough Cardiovascular: regular rate and rhythm, nl pulses; No edema Gastrointestinal: soft, nondistended; nonrigid, NT Genitourinary - Female: nl external genitalia Musculoskeletal: nl extremities to inspection Extremities: normal pulses; No edema Neurological: No nl speech (Repetitive words), No nl strength Skin: No rash or lesions Results Result Diagram: 02/01/19 1029 01/29/19 0447 MARY JANE DALY NP February 02, 2019 11:19
--- NOTE | 2019-02-02 14:34 | PN ---
Date/Time of Note Date/Time of Note DATE: 02/02/19 TIME: 14:28 Assessment/Plan VTE Prophylaxis Risk score (from Nsg)>0 risk: 7 SCD applied (from Nsg): Yes Pharmacological prophylaxis: heparin Lines/Catheters IV Catheter Type (from Nrsg): Saline Lock Urinary Cath still in place: No Assessment/Plan Hospital Course EXAM Alert, interactive Expressive aphasia RUE weakness No abdominal pain to palpation Appears comfortable A/P: 63 yo female with brain cancer s/p resection who presented with perforated diverticulitis perforated diverticulitis: - conservative management with abx - pain control - appears to have resolved Stage IV brain cancer - MRI shows mild progression of disease - Continue decadron for now - Follow up with oncologist as outpatient History of diabetes Lantus and sliding scale Prophylaxis: SCDs DC planning: Unable to ambulate. Consider ARU vs SNF Result Diagram: 02/01/19 1029 01/29/19 0447 Results 24hrs Laboratory Tests Test 02/01/19 17:52 02/01/19 20:43 02/02/19 09:26 02/02/19 12:42 Bedside Glucose 167 164 143 212 Subjective 24 Hr Interval Summary Free Text/Dictation MRI shows tumor in temporal lobe Patient stable, no abdominal pain Ready for dc to SNF Exam/Review of Systems Exam Vitals Vital Signs Date Temp Pulse Resp B/P (MAP) Pulse Ox O2 O2 Flow FiO2 Time Delivery Rate 02/02/19 97.8 77 18 184/93 96 Room Air 07:31 (123) Intake and Output 02/01/19 02/01/19 02/02/19 1515:00 23:00 07:00 IntakeIntake Total 400 ml 500 ml 200 ml BalanceBalance 400 ml 500 ml 200 ml Results Results 24hrs Laboratory Tests Test 02/01/19 17:52 02/01/19 20:43 02/02/19 09:26 02/02/19 12:42 Bedside Glucose 167 164 143 212 Medications Medication Current Medications IV Flush (NS 3 ml) 3 ml PER PROTOCOL IV ; Start 01/23/19 at 18:00 Morphine Sulfate (morphine) 2 mg Q4H PRN IV .SEVERE PAIN 7-10 Last administered on 02/01/19at 11:55; Admin Dose 2 MG; Start 01/23/19 at 18:00 Pantoprazole (Protonix Iv) 40 mg DAILY@06 IV Last administered on 02/02/19at 06:04; Admin Dose 40 MG; Start 01/24/19 at 06:00 Levetiracetam 100 ml @ 400 mls/hr Q12 IVPB Last administered on 02/02/19at 09:30; Admin Dose 400 MLS/HR; Start 01/23/19 at 23:00 Piperacillin Sod/ Tazobactam Sod 100 ml @ 200 mls/hr Q6 IVPB Last administered on 02/02/19at 12:49; Admin Dose 200 MLS/HR; Start 01/24/19 at 00:00 Dexamethasone (Decadron) 4 mg BID PO Last administered on 02/02/19at 09:30; Admin Dose 4 MG; Start 01/24/19 at 12:30 Miscellaneous Information 1 ea NOTE XX ; Start 01/24/19 at 16:30 Glucose (Glutose) 15 gm Q15M PRN PO DECREASED GLUCOSE; Start 01/24/19 at 16:30 Glucose (Glutose) 22.5 gm Q15M PRN PO DECREASED GLUCOSE; Start 01/24/19 at 16:30 Dextrose (D50w Syringe) 25 ml Q15M PRN IV DECREASED GLUCOSE; Start 01/24/19 at 16:30 Dextrose (D50w Syringe) 50 ml Q15M PRN IV DECREASED GLUCOSE; Start 01/24/19 at 16:30 Glucagon (Glucagen) 1 mg Q15M PRN IM DECREASED GLUCOSE; Start 01/24/19 at 16:30 Glucose (Glutose) 15 gm Q15M PRN BUCCAL DECREASED GLUCOSE; Start 01/24/19 at 16:30 Insulin Glargine (Lantus) 16 units DAILY@2000 SC Last administered on 02/01/19at 21:01; Admin Dose 16 UNITS; Start 01/27/19 at 20:00 Insulin Aspart (Novolog Insulin Pen) NOVOLOG *MILD* ALGORITHM WITH MEALS BEDTIME SC Last administered on 02/02/19at 12:50; Admin Dose 2 UNIT; Start 02/01/19 at 07:50 RAVI MURCIA MD February 02, 2019 14:34
[2019-02-02 14:46] VITALS: BP 124/78; PULSE 78; RESP 19
[2019-02-02 19:15] VITALS: BP 131/79; PULSE 70; RESP 18
[2019-02-02 19:25] VITALS: BP 131/79; PULSE 70; RESP 18
[2019-02-02] MEDS: INSULIN GLARGINE [LANTus] (100 UNITS/ML) SYG SC SCH (20:45)
[2019-02-02] MEDS: morphine 2 MG INJ IV PRN (22:48)
[2019-02-03 02:00] VITALS: BP 149/81; PULSE 56; RESP 18
[2019-02-03 02:15] VITALS: BP 149/81; PULSE 56; RESP 18
[2019-02-03] MEDS: PANTOPRAZOLE 40 MG INJ IV SCH (06:06)
[2019-02-03] MEDS: PIPER-TAZO 3.375 GM IV (PMX) 100 ML IVPB SCH ×3 (06:07→18:25)
[2019-02-03 08:19] VITALS: BP 177/91; PULSE 58; RESP 18
[2019-02-03] MEDS: DEXAMETHASONE 4 MG TAB PO SCH ×2 (08:46→20:34)
[2019-02-03] MEDS: LEVETIRACETAM 500 MG (PMX) 100 ML IVPB SCH ×2 (08:46→20:34)
[2019-02-03] MEDS: INSULIN ASPART [NOVOLOG] 3 ML PEN SC SCH ×4 (08:49→20:38)
[2019-02-03 14:00] VITALS: BP 142/88; PULSE 60; RESP 18
--- NOTE | 2019-02-03 14:08 | PN ---
Date/Time of Note Date/Time of Note DATE: 02/03/19 TIME: 14:07 Assessment/Plan Lines/Catheters IV Catheter Type (from [facility]): Peripheral IV Figueroa in Place (from [facility]): No Assessment/Plan Chief Complaint/Hosp Course 1. Perforated diverticulitis w small pneumoperitoneum: family would like to pursue conservative management. Bowel function. Imaging noted. -Diet as tolerated -dc ok from surgical standpoint w oral abx for completion of 2 weeks. 2. Stage 4 brain cancer, sp tumor resection and radiation: repeat mri: Interval increase in size of a nodular lesion in the left posterior frontal lobe now measures 2.5 x 2.9 cm previously measures 2.3 x 2.5 cm -Oncology/neuro follow-up -Supportive 3. Leukopenia: Afebrile -Trend -as above 4. Normocytic normochromic anemia: -Monitor and transfuse as needed 5. Thrombocytopenia: Resolved -Monitor 6. Obesity BMI: 31 -diet and exercise optimization -encourage weight loss 7. Dyslipidemia, HTN history -Highly encouraged weight loss -Medical management Thank you. Patient seen and examined in collaboration with Dr. Abimael Fuentes. Subjective 24 Hr Interval Summary No fevers, chills, sob, congested cough, cp, palpitations, chavarria, dizziness, n/v/d/dysuria. +bowel function. Exam/Review of Systems Vital Signs Vitals Vital Signs Date Temp Pulse Resp B/P (MAP) Pulse Ox O2 O2 Flow FiO2 Time Delivery Rate 02/03/19 98.2 58 18 177/91 97 Room Air 08:19 (119) Intake and Output 02/02/19 02/02/19 02/03/19 1515:00 23:00 07:00 IntakeIntake Total 200 ml 520 ml 200 ml BalanceBalance 200 ml 520 ml 200 ml Exam Free Text/Dictation Constitutional: NAD, BMI 31 Psych: nl mood/affect; No anxiety Head: normocephalic, atraumatic, other (Left scalp incision sites healed) Eyes: nl conjunctiva, nl lids ENMT: nl external ears & nose, nl lips & teeth, nl nasal mucosa & septum Neck: supple, non-tender Respiratory: normal air movement; No congested cough Cardiovascular: regular rate and rhythm, nl pulses; No edema Gastrointestinal: soft, nondistended; nonrigid, NT Genitourinary - Female: nl external genitalia Musculoskeletal: nl extremities to inspection Extremities: normal pulses; No edema Neurological: No nl speech (Repetitive words), Able to answer simple questions; No nl strength Skin: No rash or lesions Results Result Diagram: 02/01/19 1029 MARY JANE DALY NP February 03, 2019 14:08
--- NOTE | 2019-02-03 15:21 | PN ---
Date/Time of Note Date/Time of Note DATE: 02/03/19 TIME: 15:20 Assessment/Plan VTE Prophylaxis Risk score (from Nsg)>0 risk: 3 SCD applied (from Nsg): Yes Pharmacological prophylaxis: heparin Lines/Catheters IV Catheter Type (from Nrsg): Peripheral IV Urinary Cath still in place: No Assessment/Plan Hospital Course EXAM Alert, interactive Expressive aphasia RUE weakness No abdominal pain to palpation Appears comfortable A/P: 63 yo female with brain cancer s/p resection who presented with perforated diverticulitis perforated diverticulitis: - conservative management with abx - pain control - appears to have resolved Stage IV brain cancer - MRI shows mild progression of disease - Continue decadron for now - Follow up with oncologist as outpatient History of diabetes Lantus and sliding scale Prophylaxis: SCDs DC planning: Unable to ambulate. Awaiting discharge to SNF Result Diagram: 02/01/19 1029 Results 24hrs Laboratory Tests Test 02/02/19 18:08 02/02/19 20:38 02/03/19 01:54 02/03/19 08:26 Bedside Glucose 194 235 H 180 153 Test 02/03/19 12:26 Bedside Glucose 191 Subjective 24 Hr Interval Summary Free Text/Dictation Doing well, abdominal pain resolved Resting comfortably Exam/Review of Systems Exam Vitals Vital Signs Date Temp Pulse Resp B/P (MAP) Pulse Ox O2 O2 Flow FiO2 Time Delivery Rate 02/03/19 98.2 58 18 177/91 97 Room Air 08:19 (119) Intake and Output 02/02/19 02/02/19 02/03/19 1515:00 23:00 07:00 IntakeIntake Total 200 ml 520 ml 200 ml BalanceBalance 200 ml 520 ml 200 ml Results Results 24hrs Laboratory Tests Test 02/02/19 18:08 02/02/19 20:38 02/03/19 01:54 02/03/19 08:26 Bedside Glucose 194 235 H 180 153 Test 02/03/19 12:26 Bedside Glucose 191 Medications Medication Current Medications IV Flush (NS 3 ml) 3 ml PER PROTOCOL IV ; Start 01/23/19 at 18:00 Morphine Sulfate (morphine) 2 mg Q4H PRN IV .SEVERE PAIN 7-10 Last administered on 02/02/19at 22:48; Admin Dose 2 MG; Start 01/23/19 at 18:00 Pantoprazole (Protonix Iv) 40 mg DAILY@06 IV Last administered on 02/03/19 06:06; Admin Dose 40 MG; Start 01/24/19 at 06:00 Levetiracetam 100 ml @ 400 mls/hr Q12 IVPB Last administered on 02/03/19 08:46; Admin Dose 400 MLS/HR; Start 01/23/19 at 23:00 Piperacillin Sod/ Tazobactam Sod 100 ml @ 200 mls/hr Q6 IVPB Last administered on 02/03/19 12:36; Admin Dose 200 MLS/HR; Start 01/24/19 at 00:00 Dexamethasone (Decadron) 4 mg BID PO Last administered on 02/03/19 08:46; Admin Dose 4 MG; Start 01/24/19 at 12:30 Miscellaneous Information 1 ea NOTE XX ; Start 01/24/19 at 16:30 Glucose (Glutose) 15 gm Q15M PRN PO DECREASED GLUCOSE; Start 01/24/19 at 16:30 Glucose (Glutose) 22.5 gm Q15M PRN PO DECREASED GLUCOSE; Start 01/24/19 at 16:30 Dextrose (D50w Syringe) 25 ml Q15M PRN IV DECREASED GLUCOSE; Start 01/24/19 at 16:30 Dextrose (D50w Syringe) 50 ml Q15M PRN IV DECREASED GLUCOSE; Start 01/24/19 at 16:30 Glucagon (Glucagen) 1 mg Q15M PRN IM DECREASED GLUCOSE; Start 01/24/19 at 16:30 Glucose (Glutose) 15 gm Q15M PRN BUCCAL DECREASED GLUCOSE; Start 01/24/19 at 16:30 Insulin Glargine (Lantus) 16 units DAILY@1999 SC Last administered on 02/02/19at 20:45; Admin Dose 16 UNITS; Start 01/27/19 at 20:00 Insulin Aspart (Novolog Insulin Pen) NOVOLOG *MILD* ALGORITHM WITH MEALS BED TIME SC Last administered on 02/03/19 12:41; Admin Dose 2 UNIT; Start 02/01/19 at 07:50 RAVI MURCIA MD February 03, 2019 15:21
[2019-02-03 20:00] VITALS: BP 123/75; PULSE 64; RESP 18
[2019-02-03] MEDS: INSULIN GLARGINE [LANTus] (100 UNITS/ML) SYG SC SCH (20:38)
[2019-02-04] MEDS: PIPER-TAZO 3.375 GM IV (PMX) 100 ML IVPB SCH ×4 (00:32→17:56)
[2019-02-04 02:17] VITALS: BP 119/74; PULSE 69; RESP 18
[2019-02-04] MEDS: PANTOPRAZOLE 40 MG INJ IV SCH (05:51)
[2019-02-04] MEDS: INSULIN ASPART [NOVOLOG] 3 ML PEN SC SCH ×4 (07:50→20:55)
[2019-02-04 07:54] VITALS: BP 139/86; PULSE 80; RESP 16
[2019-02-04] MEDS: DEXAMETHASONE 4 MG TAB PO SCH (08:34)
[2019-02-04] MEDS: LEVETIRACETAM 500 MG (PMX) 100 ML IVPB SCH ×3 (09:00→20:45)
--- NOTE | 2019-02-04 15:29 | PN ---
Date/Time of Note Date/Time of Note DATE: 02/04/19 TIME: 15:28 Assessment/Plan Lines/Catheters IV Catheter Type (from [facility]): Peripheral IV Figueroa in Place (from [facility]): No Assessment/Plan Chief Complaint/Hosp Course 1. Perforated diverticulitis w small pneumoperitoneum: family would like to pursue conservative management. Bowel function. Imaging noted. -Diet as tolerated -dc ok from surgical standpoint w oral abx for completion of 2 weeks. 2. Stage 4 brain cancer, sp tumor resection and radiation: repeat mri: Interval increase in size of a nodular lesion in the left posterior frontal lobe now measures 2.5 x 2.9 cm previously measures 2.3 x 2.5 cm -Oncology/neuro follow-up -Supportive 3. Leukopenia: Afebrile -Trend -as above 4. Normocytic normochromic anemia: -Monitor and transfuse as needed 5. Thrombocytopenia: Resolved -Monitor 6. Obesity BMI: 31 -diet and exercise optimization -encourage weight loss 7. Dyslipidemia, HTN history -Highly encouraged weight loss -Medical management Thank you. Patient seen and examined in collaboration with Dr. Abimael Fuentes. Subjective 24 Hr Interval Summary No fevers, chills, sob, congested cough, cp, palpitations, chavarria, dizziness, nausea, vomiting, diarrhea, dysuria. + Bowel function. No abdominal pain. Exam/Review of Systems Vital Signs Vitals Vital Signs Date Temp Pulse Resp B/P (MAP) Pulse Ox O2 O2 Flow FiO2 Time Delivery Rate 02/04/19 98.3 80 16 139/86 95 Room Air 07:54 (103) Intake and Output 02/03/19 02/03/19 02/04/19 1515:00 23:00 07:00 IntakeIntake Total 440 ml 590 ml 200 ml BalanceBalance 440 ml 590 ml 200 ml Exam Free Text/Dictation Constitutional: NAD, BMI 31 Psych: nl mood/affect; No anxiety Head: normocephalic, atraumatic, other (Left scalp incision sites healed) Eyes: nl conjunctiva, nl lids ENMT: nl external ears & nose, nl lips & teeth, nl nasal mucosa & septum Neck: supple, non-tender Respiratory: normal air movement; No congested cough Cardiovascular: regular rate and rhythm, nl pulses; No edema Gastrointestinal: soft, nondistended; nonrigid, NT Genitourinary - Female: nl external genitalia Musculoskeletal: nl extremities to inspection Extremities: normal pulses; No edema Neurological: No nl speech (Repetitive words), Able to answer simple questions; No nl strength Skin: No rash or lesions Results Result Diagram: 02/01/19 1029 MARY JANE DALY NP February 04, 2019 15:29
[2019-02-04 16:42] VITALS: BP 123/75; PULSE 72; RESP 19
[2019-02-04] MEDS: morphine 2 MG INJ IV PRN (16:44)
[2019-02-04 19:58] VITALS: BP 127/75; PULSE 72; RESP 18
[2019-02-04] MEDS: DEXAMETHASONE 2 MG TAB PO SCH (20:45)
[2019-02-04] MEDS: INSULIN GLARGINE [LANTus] (100 UNITS/ML) SYG SC SCH (20:55)
[2019-02-05 01:51] VITALS: BP 154/79; PULSE 60; RESP 18
[2019-02-05] MEDS: PIPER-TAZO 3.375 GM IV (PMX) 100 ML IVPB SCH ×4 (02:26→17:34)
[2019-02-05 03:30] VITALS: BP 137/77; PULSE 70
[2019-02-05] MEDS: PANTOPRAZOLE 40 MG INJ IV SCH (06:41)
[2019-02-05 07:09] VITALS: BP 146/82; PULSE 60
[2019-02-05] MEDS: INSULIN ASPART [NOVOLOG] 3 ML PEN SC SCH ×3 (07:50→17:33)
[2019-02-05] MEDS: DEXAMETHASONE 2 MG TAB PO SCH (08:45)
[2019-02-05] MEDS: LEVETIRACETAM 500 MG (PMX) 100 ML IVPB SCH (08:45)
--- NOTE | 2019-02-05 11:09 | PN ---
Date/Time of Note Date/Time of Note DATE: 02/05/19 TIME: 11:07 Assessment/Plan Lines/Catheters IV Catheter Type (from [facility]): Saline Lock Figueroa in Place (from [facility]): No Assessment/Plan Chief Complaint/Hosp Course 1. Perforated diverticulitis w small pneumoperitoneum: family would like to pursue conservative management. Bowel function. Imaging noted. -Diet as tolerated -dc ok from surgical standpoint w oral abx for completion of 2 weeks. 2. Stage 4 brain cancer, sp tumor resection and radiation: repeat mri: Interval increase in size of a nodular lesion in the left posterior frontal lobe now measures 2.5 x 2.9 cm previously measures 2.3 x 2.5 cm -Oncology/neuro follow-up -Supportive 3. Leukopenia: Afebrile -Trend -as above 4. Normocytic normochromic anemia: -Monitor and transfuse as needed 5. Thrombocytopenia: Resolved -Monitor 6. Obesity BMI: 31 -diet and exercise optimization -encourage weight loss 7. Dyslipidemia, HTN history -Highly encouraged weight loss -Medical management Thank you Subjective 24 Hr Interval Summary No fevers, chills, sob, congested cough, cp, palpitations, chavarria, dizziness, nausea, vomiting, diarrhea, dysuria. + Bowel function. No abdominal pain. Exam/Review of Systems Vital Signs Vitals Vital Signs Date Temp Pulse Resp B/P (MAP) Pulse Ox O2 O2 Flow FiO2 Time Delivery Rate 02/05/19 98.0 60 146/82 99 Room Air 07:09 (103) 02/05/19 18 01:51 Intake and Output 02/04/19 02/04/19 02/05/19 1515:00 23:00 07:00 IntakeIntake Total 200 ml 250 ml 100 ml BalanceBalance 200 ml 250 ml 100 ml Exam Free Text/Dictation Constitutional: NAD, BMI 31 Psych: nl mood/affect; No anxiety Head: normocephalic, atraumatic, other (Left scalp incision sites healed) Eyes: nl conjunctiva, nl lids ENMT: nl external ears & nose, nl lips & teeth, nl nasal mucosa & septum Neck: supple, non-tender Respiratory: normal air movement; No congested cough Cardiovascular: regular rate and rhythm, nl pulses; No edema Gastrointestinal: soft, nondistended; nonrigid, NT Genitourinary - Female: nl external genitalia Musculoskeletal: nl extremities to inspection Extremities: normal pulses; No edema Neurological: No nl speech (Repetitive words), Able to answer simple questions; No nl strength Skin: No rash or lesions Results Result Diagram: 02/01/19 1029 LOUIS PERDOMO MD February 05, 2019 11:09
[2019-02-05 14:56] VITALS: BP 146/81; RESP 18
--- NOTE | 2019-02-05 15:14 | PN ---
Date/Time of Note Date/Time of Note DATE: 02/05/19 TIME: 15:13 Assessment/Plan VTE Prophylaxis Risk score (from Ns)>0 risk: 6 SCD applied (from Ns): Yes Pharmacological prophylaxis: NA/contraindicated Pharm contraindication: other Lines/Catheters IV Catheter Type (from Nrsg): Saline Lock Urinary Cath still in place: No Assessment/Plan Hospital Course 63 yo female with brain cancer s/p resection who presented with perforated diverticulitis perforated diverticulitis: - conservative management with abx - pain control - appears to have resolved Stage IV brain cancer - MRI shows mild progression of disease - Continue decadron for now - Follow up with oncologist as outpatient History of diabetes Lantus and sliding scale Prophylaxis: SCDs DC planning: Unable to ambulate. Awaiting discharge to SNF Result Diagram: 02/01/19 1029 Results 24hrs Laboratory Tests Test 02/04/19 17:46 02/04/19 20:50 02/05/19 08:35 02/05/19 13:00 Bedside Glucose 147 130 87 117 Subjective 24 Hr Interval Summary Constitutional: disoriented Exam/Review of Systems Exam Vitals Vital Signs Date Temp Pulse Resp B/P (MAP) Pulse Ox O2 O2 Flow FiO2 Time Delivery Rate 02/05/19 98.3 18 146/81 96 Room Air 14:56 (102) 02/05/19 60 07:09 Intake and Output 02/04/19 02/04/19 02/05/19 1515:00 23:00 07:00 IntakeIntake Total 200 ml 250 ml 100 ml BalanceBalance 200 ml 250 ml 100 ml Psych: confusion Respiratory: clear to auscultation Cardiovascular: regular rate and rhythm Gastrointestinal: soft; No distended Musculoskeletal: nl extremities to inspection Results Results 24hrs Laboratory Tests Test 02/04/19 17:46 02/04/19 20:50 02/05/19 08:35 02/05/19 13:00 Bedside Glucose 147 130 87 117 Medications Medication Current Medications IV Flush (NS 3 ml) 3 ml PER PROTOCOL IV ; Start 01/23/19 at 18:00 Morphine Sulfate (morphine) 2 mg Q4H PRN IV .SEVERE PAIN 7-10 Last administered on 02/04/19at 16:44; Admin Dose 2 MG; Start 01/23/19 at 18:00 Pantoprazole (Protonix Iv) 40 mg DAILY@06 IV Last administered on 02/05/19 06:41; Admin Dose 40 MG; Start 01/24/19 at 06:00 Levetiracetam 100 ml @ 400 mls/hr Q12 IVPB Last administered on 02/05/19 08:45; Admin Dose 400 MLS/HR; Start 01/23/19 at 23:00 Piperacillin Sod/ Tazobactam Sod 100 ml @ 200 mls/hr Q6 IVPB Last administered on 02/05/19at 13:01; Admin Dose 200 MLS/HR; Start 01/24/19 at 00:00 Miscellaneous Information 1 ea NOTE XX ; Start 01/24/19 at 16:30 Glucose (Glutose) 15 gm Q15M PRN PO DECREASED GLUCOSE; Start 01/24/19 at 16:30 Glucose (Glutose) 22.5 gm Q15M PRN PO DECREASED GLUCOSE; Start 01/24/19 at 16:30 Dextrose (D50w Syringe) 25 ml Q15M PRN IV DECREASED GLUCOSE; Start 01/24/19 at 16:30 Dextrose (D50w Syringe) 50 ml Q15M PRN IV DECREASED GLUCOSE; Start 01/24/19 at 16:30 Glucagon (Glucagen) 1 mg Q15M PRN IM DECREASED GLUCOSE; Start 01/24/19 at 16:30 Glucose (Glutose) 15 gm Q15M PRN BUCCAL DECREASED GLUCOSE; Start 01/24/19 at 16:30 Insulin Glargine (Lantus) 16 units DAILY@2000 SC Last administered on 02/04/19 20:55; Admin Dose 16 UNITS; Start 01/27/19 at 20:00 Insulin Aspart (Novolog Insulin Pen) NOVOLOG *MILD* ALGORITHM WITH MEALS BEDTIME SC Last administered on 02/04/19 17:56; Admin Dose 1 UNIT; Start 02/01/19 at 07:50 Dexamethasone (Decadron) 2 mg BID PO Last administered on 02/05/19 08:45; Admin Dose 2 MG; Start 02/04/19 at 21:00 ELIZABETH GOODWIN February 05, 2019 15:14
[2019-02-05] MEDS ORDERED: Insulin Glargine SC (15:59)
--- NOTE | 2019-02-05 16:04 | DS ---
Date/Time of Note Date/Time of Note DATE: 02/05/19 TIME: 16:00 Discharge Summary Admission/Discharge Info Admit Date/Time Jan 23, 2019 at 17:15 Discharge Date/Time February 05, 2019 Discharge Diagnosis 63 yo female with brain cancer s/p resection who presented with perforated diverticulitis perforated diverticulitis-resolved -Status post conservative management with abx -Surgical consultation appreciated Stage IV brain cancer - MRI shows mild progression of disease - Continue decadron for now - Follow up with oncologist as outpatient History of diabetes Lantus and sliding scale Debility secondary to comorbidities -DC to rehab facility Patient Condition: Good Hospital Course Patient is a 63-year-old female with a history of brain cancer status post surgical resection x2, dyslipidemia, diabetes and hypertension. Patient is nonverbal and nonambulatory at baseline but does respond with yes and no. Patient had been alluding to abdominal pain and was brought to the ER for furthe r evaluation, CT abdomen showed diverticulitis with perforation and surgery was consulted. Surgeon and family opted for conservative treatment considering patient's comorbidities, patient did improve with IV antibiotics and n.p.o. status. Patient was eventually started on p.o. diet with no reports of abdominal pain patient did receive an adequate course of IV antibiotics. 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 On the day of discharge patient's vitals, labs and physical exam are stable. Home Meds Active Scripts [Insulin Glargine] 100 UNITS/ML SOLAlmita No Conflict Check, 16 UNITS SC DAILY@1999, #1 VIAL Prov:CHRISTAELIZABETH 02/05/19 Reported Medications Docusate Sodium* (Stool Softener*) 100 Mg Capsule, 100 MG PO DAILY, CAP 01/23/19 Tramadol Hcl* (Ultram*) 50 Mg Tablet, 50 MG PO Q6H PRN for PAIN, TAB 01/23/19 Pantoprazole* (Pantoprazole*) 40 Mg Tablet.dr, 40 MG PO AC BREAKFAST, TAB 01/23/19 Levetiracetam* (Levetiracetam*) 750 Mg Tablet, 750 MG PO BID, TAB 01/23/19 Dexamethasone* (Dexamethasone*) 4 Mg Tablet, 4 MG PO BID, TAB 01/23/19 Atorvastatin Calcium* (Atorvastatin Calcium*) 20 Mg Tablet, 20 MG PO QHS, #30 TAB 01/23/19 Amlodipine Besylate* (Norvasc*) 5 Mg Tablet, 5 MG PO DAILY, TAB 01/23/19 Discontinued Reported Medications Metformin Hcl* (Metformin Hcl*) 850 Mg Tablet, 850 MG PO WITH BREAKFAST DINNE, #60 TAB 01/23/19 Follow-up Plan Follow-up with physicians at the correction facility Primary Care Provider [facility] Time spent on discharge: > 30 minutes ELIZABETH GOODWIN February 05, 2019 16:03
== END 2019-02-05 18:30 | DRG 392 ==
LOC: E/R 14:26 → MS1 17:15
PROVIDERS: ADMIT Internal Medicine; ATTEND Internal Medicine
DX: K57.20 Diverticulitis of large intestine with perforation and abscess without bleeding (principal); C71.9 Malignant neoplasm of brain, unspecified; G93.40 Encephalopathy, unspecified; Z90.710 Acquired absence of both cervix and uterus; D64.9 Anemia, unspecified; D69.6 Thrombocytopenia, unspecified; E78.5 Hyperlipidemia, unspecified; E66.9 Obesity, unspecified; Z68.30 Body mass index [BMI] 30.0-30.9, adult; E11.65 Type 2 diabetes mellitus with hyperglycemia; D72.819 Decreased white blood cell count, unspecified; K59.00 Constipation, unspecified; K29.70 Gastritis, unspecified, without bleeding
CPT/HCPCS: 36415; 70551; 71045; 74018; 74176; 74177; 80048; 80053; 81001; 82962; 83605; 83690; 83735; 84100; 84484; 85025; 87081; 92526; 92610; 93005; 96374; 96375; 97110; 97163; 97530; C9113; J0360; J1100; J1815; J1953; J2270; J2405; J2543; J3480; J7030; Q9967